=== PATIENT | male | born 1935 | race Caucasian/White ===

== ENCOUNTER 2019-03-13 09:50 | Inpatient (IN) ==
--- NOTE | 2019-03-13 09:46 | Emergency Department Note ---
Entered by Prerna Michele acting as a scribe for Hitesh He MD ED Provider Note Name: Cristian Ahumada Age: 83M Arrives Via: EMS Informant: Patient, Family, EMS CC: Stroke-like symptoms HPI: The patient is a 83 year old male with a history of a mitral valve replacement, recurrent UTIs, and an enlarged prostate that is presenting to the Emergency Room with complaints of stroke-like symptoms that started this morning around 0730. The patient arrived via EMS who provided part of the history as giv en by the patient's family. EMS states that the patient was experiencing an episode of mild confusion and vomited multiple times upon waking. EMS notes that the patient's family was not able to state an exact time for an onset of the patient's current symptoms. EMS reports that the patient was having difficulty speaking. EMS notes that the patient is able to state his name but is having difficulty finding words. EMS states that the patient is complaining of a mild headache. The patient states that he was nauseous upon arrival to the Emergency Room but notes that it resolved with treatment. He state that he has taken all of his medications this morning. He denies any recent antibiotics or illness. He denies any other symptoms beyond a difficulty finding words. ROS: See above HPI for pertinent positives & negatives. A total of 10 systems reviewed and were otherwise negative. Past Medical History: Recurrent urinary tract infections, enlarged prostate Past Surgical History: S/p mitral valve replacement Family History: Non-contributory family history Social History: , lives with spouse, retired Home Medications: Coumadin Allergies NKDA Physical: Vitals: BP: 147/84; P: 71; R: 17; R: 98.2F, O2 98% Exam: GENERAL: Patient is well appearing and in no acute distress. EYES: No scleral icterus, unremarkable pupils. ENT: Mucous membranes moist, no nasal congestion. NECK: No masses appreciated, no meningismus, trachea is midline. RESPIRATORY: No dyspnea. Clear to auscultation and equal bilaterally. No rhonchi. Mild wheezing noted. CARDIOVASCULAR: Regular rate and rhythm. No murmurs, rubs, gallops appreciated. Anterior lateral right chest incision scar. GASTROINTESTINAL: Abdomen soft, non-tender, no peritonitis. Bowel sounds positive. No masses appreciated. BACK: No midline tenderness, no CVA tenderness EXTREMITIES: Normal motion all extremities, no cyanosis, no edema. NEUROLOGIC: Alert and oriented, no acute sensory deficits, cranial nerves grossly intact. Mild right hand weakness but proximal muscles are 5/5. All other extremities are normal. Some difficulty with word finding but no slurred speech. Hard of hearing. SKIN: No rash, no jaundice, no diaphoresis. GCS 15 ED Course: Prior Medical Record, Triage/Nursing Notes, Medications, Allergies reviewed by Me Vital Signs: reviewed and remarkable for mild HTN Labs: Reviewed and remarkable for INR 2.5 Interventions: Saline Lock, NSS infusion, Magnesium 2G IV Imaging: CT SCAN OF THE BRAIN WITHOUT IV CONTRAST CLINICAL HISTORY: Strokelike symptoms. COMPARISON STUDY: No priors. TECHNIQUE: Unenhanced axial CT scan of the brain is performed from the vertex to the skull base. A dose lowering technique was utilized adhering to the principles of ALARA. CT DOSE: 614.27 mGy.cm FINDINGS: Brain parenchyma: There are age-related involutional changes noting moderate to advanced subcortical and periventricular microangiopathic change. A small focus of left frontal encephalomalacia is consistent with a remote infarct. There is no hemorrhage, mass effect, or evidence of acute territorial ischemia by CT criteria. Pulido-white matter differentiation is preserved. No extra-axial fluid collection is seen. Ventricles, sulci, cisterns: Prominent secondary to involutional change. Intracranial vasculature: There is atherosclerotic calcification of the cavernous carotid and vertebral arteries. Calvarium: Unremarkable. Soft tissues: A tiny metallic foreign body is seen within the frontal scalp. Sinuses and mastoids: Trace mucosal thickening is seen in the right maxillary antra. The remaining visualized paranasal sinuses are clear. The mastoid air cells are well pneumatized. Orbits: The bony orbits are grossly intact. There are bilateral ocular lens implants. IMPRESSION: There is no hemorrhage, mass effect, or evidence of acute territorial ischemia by CT criteria. Electronically signed by: Benny Bates M.D. 03/13/2019 10:01 AM XR chest 1V portable CLINICAL HISTORY: stroke symptoms, vomiting, confusion mental status change COMPARISON STUDY: No previous studies for comparison. FINDINGS: The bones soft tissues and hemidiaphragms are normal. The cardiomediastinal silhouette is normal. The lungs are clear. The pulmonary vasculature is normal. IMPRESSION: Negative chest. The above report was generated using voice recognition software. It may contain grammatical, syntax or spelling errors. Electronically signed by: Ted Raman M.D. 03/13/2019 10:[address] angio head w con HISTORY: Mental status change stroke eval TECHNIQUE: Multiaxial CT angiography of the head was performed IV contrast: None. Maximum intensity projection images were also obtained. A dose lowering technique was utilized adhering to the principles of ALARA. COMPARISON: None. FINDINGS: There is no mass, hematoma, midline shift, or acute infarct. Visual ized intracranial internal carotid arteries, distal vertebral arteries, and basilar artery are widely patent. There is no significant stenosis, occlusion, or aneurysm seen within the bilateral ACAs, MCAs, or bariatric surgeon. IMPRESSION: No significant stenosis, occlusion, or aneurysm within the [place]. The above report was generated using voice recognition software. It may contain grammatical, syntax or spelling errors. Electronically signed by: Ted Raman M.D. 03/13/2019 11:[address] angio neck with con CLINICAL HISTORY: 83 years-old Male with stroke eval. Acute strokelike symptoms COMPARISON STUDY: CTA of the head of same day TECHNIQUE: Following the IV administration of 94 mL of Optiray 320, CT angiogram of the neck was performed from the aortic arch to the skull base. Images are reviewed in the axial, sagittal, and coronal planes. 3-D MIPS images are created and assessed. IV contrast was administered without complication. All measuremen ts were calculated based on NASCET criteria. A dose lowering technique was utilized adhering to the principles of ALARA. FINDINGS: Mild mixed plaque formation about the thoracic aorta and proximal great vessels. The bilateral subclavian arteries appear to be widely patent. Patent bilateral common carotid arteries. Moderate mixed plaque information about the bilateral carotid bulbs results in less than 50% luminal narrowing bilaterally. There is calcified plaque noted about the bilateral cavernous and supraclinoid segments without high-grade stenosis. Vertebral arteries appear to be codominant. Areas of mild luminal narrowing noted about the bilateral V2 segments without high- grade stenosis. Lung apices appear clear. Soft tissues are unremarkable. Prior bilateral cataract repair. Degenerative changes noted throughout the spine. Mastoid air cells and middle ear cavities are clear. Mild mucosal thickening about the ethmoid and maxillary sinuses. IMPRESSION: 1. No aneurysm, dissection, high-grade stenosis or proximal branch occlusion. 2. Moderate mixed plaque information about the bilateral carotid bulbs results in less than 50% stenosis. The above report was generated using voice recognition software. It may contain grammatical, syntax or spelling errors. Electronically signed by: Juanjose Bose M.D. 03/13/2019 11:53 AM EKG: Per My Interpretation: Indication Stroke: NSR 76 bpm qtc 456 no ectopy no ischemia. Similar to previous EKG Course: 954: The patient arrived and went immediately to CT. A complete history and physical examination was performed. 0959: I discussed the patients case with Dr. Wayne ,Stroke Neurologist, who will evaluate the patient via telestroke. 1003: INR is 2.6. 1005: Patient is no distress. Right hand weakness that was noted earlier does not appear to present currently. 1019 Family at bedside. They confirmed that the right sided weakness is chronic. They state that the patient was normal last night and started having difficulty speaking this morning upon waking 1037: I spoke with neurology who recommended a CTA head and neck, an EEG, 2 g IV magnesium, and to allow for moderate hypertension. 1046: I reevaluated the patient at this time, who is resting comfortable and in no distress. 1051: I discussed the patients case with AYDEE Correa, who will evaluate the patient further management and care with Dr. Draper as the attending physician. 1055: Upon reevaluation, the patient is resting comfortably. I discussed laboratory and radiographic results with the patient. He verbalized agreement of the treatment plan. The patient will be evaluated for further management and care. Blood pressure: Elevated - [place] to be Situation. Disposition: Hospitalization Differentials: Differential: Toxicological, Infectious, Stroke, SAH, Trauma, Electrolyte Abnormality, Hypoglycemia, Alcohol Intoxication, Drug Intoxication, Cardiac Abnormality, Sepsis, Meningitis/Encephalitis, Trauma, Excited Delirium, Serotonin Syndrome, Psychiatric, amongst other pathologies entertained. Medical Decision Makin yr old male with history of DMII, CKD, PAF and previous MV repair on coumadin who arrives with acute AMS and aphasia. Stroke alert initiated and patient taken directly to CT. On exam aphasia and mild right sided weakness. Family eventually arrived and note that right side weakness chronic but speech issues are new. Patient with head bleed. Neurologist evaluated patient and agreed not TPA candidate given his coumadin use and INR 2.5. He was monitored closed with stable symptoms. CTA done without acute findings. CXR unremarkable. Neurologist recommendations noted. Patient admitted to hospitalist for further management and evaluation. Impression: Aphasia, stroke, therapeutic INR Critical Care Time: I have personally spent greater than 30 minutes of critical care time in the direct management of this patient. Patient with acute findings of stroke for which stroke team activated, TPA at bedside with Pharmacist though was not mixed/given due to contraindications. This was a life/limb threatening event. This includes time spent evaluating patient, direct bedside care, chart review, placing orders, interpretation of diagnostic studies, discussion with consultants, patient, and family members, as well as other required patient management activities. This 30 minutes is in excess of all separately billable procedures. The scribe's documentation has been prepared under my direction and personally reviewed by me in its entirety. I confirm that the note above accurately reflects all work, treatment, procedures, and medical decision making performed by me. 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) CKD (chronic kidney disease), stage III (Chronic) DM type 2 (diabetes mellitus, type 2) (Chronic) Surgical History History of mitral valve replacement with bioprosthetic valve (Chronic) Due to infective endocarditis H/O right knee surgery (Chronic) Family History Father Heart disease Mother Stroke Social History Preferred Language: Beninese Communication Ability: Effective Beliefs That Will Affect Care: None marital status: Current Living Situation: Spouse Current Living Situation Comment: lives with dtr and current occupational status: retired Other Information That Helps Us Care for You: No Feels Safe at Home: Yes Safety Concerns: Feels Safe At This Time Smoking Status: Never smoker Hx Alcohol Use: No Hx Substance Use: No Results & Data Vital Signs Vital Signs - 24 hr 03/13/19 09:59 03/13/19 10:00 03/13/19 10:01 Temperature 36.8 C Temperature Source Oral Sepsis Recent Fever Within 48 Hours No Sepsis New/Unexplained Change in Mental Status No Sepsis Action Taken by Nursing No Action Required Pulse Rate 74 75 75 Pulse Rate from SpO2 Sensor 76 75 Respiratory Rate 16 13 Respiratory Effort / Characteristics Non-Labored Respiratory Depth Normal Respiratory Pattern Regular Blood Pressure 166/98 H 166/98 H Blood Pressure Mean 120 120 Blood Pressure Position Sitting Pulse Oximetry 98 96 96 Oxygen Delivery Method Room Air 03/13/19 10:10 03/13/19 10:11 03/13/19 10:15 Temperature Temperature Source Sepsis Recent Fever Within 48 Hours Sepsis New/Unexplained Change in Mental Status Sepsis Action Taken by Nursing Pulse Rate 80 79 80 Pulse Rate from SpO2 Sensor 79 80 81 Respiratory Rate 15 Respiratory Effort / Characteristics Respiratory Depth Respiratory Pattern Blood Pressure 134/84 140/100 Blood Pressure Mean 100 113 Blood Pressure Position Pulse Oximetry 98 97 97 Oxygen Delivery Method 03/13/19 10:20 03/13/19 10:26 03/13/19 10:30 Temperature Temperature Source Sepsis Recent Fever Within 48 Hours Sepsis New/Unexplained Change in Mental Status Sepsis Action Taken by Nursing Pulse Rate 77 77 74 Pulse Rate from SpO2 Sensor 77 77 75 Respiratory Rate 12 12 17 Respiratory Effort / Characteristics Respiratory Depth Respiratory Pattern Blood Pressure 147/78 H 148/73 H Blood Pressure Mean 101 98 Blood Pressure Position Pulse Oximetry 98 98 98 Oxygen Delivery Method 03/13/19 10:31 03/13/19 10:40 03/13/19 10:45 Temperature Temperature Source Sepsis Recent Fever Within 48 Hours Sepsis New/Unexplained Change in Mental Status Sepsis Action Taken by Nursing Pulse Rate 75 79 71 Pulse Rate from SpO2 Sensor 75 80 70 Respiratory Rate 17 14 17 Respiratory Effort / Characteristics Respiratory Depth Respiratory Pattern Blood Pressure 147/84 H Blood Pressure Mean 105 Blood Pressure Position Pulse Oximetry 97 98 97 Oxygen Delivery Method 03/13/19 10:46 03/13/19 10:50 03/13/19 10:57 Temperature Temperature Source Sepsis Recent Fever Within 48 Hours Sepsis New/Unexplained Change in Mental Status Sepsis Action Taken by Nursing Pulse Rate 72 71 74 Pulse Rate from SpO2 Sensor 72 71 73 Respiratory Rate 14 15 29 H Respiratory Effort / Characteristics Respiratory Depth Respiratory Pattern Blood Pressure 133/75 133/75 Blood Pressure Mean 94 94 Blood Pressure Position Pulse Oximetry 97 98 100 Oxygen Delivery Method 03/13/19 11:00 03/13/19 11:08 03/13/19 11:27 Temperature Temperature Source Sepsis Recent Fever Within 48 Hours Sepsis New/Unexplained Change in Mental Status Sepsis Action Taken by Nursing Pulse Rate 69 67 Pulse Rate from SpO2 Sensor 69 Respiratory Rate 16 Respiratory Effort / Characteristics Respiratory Depth Respiratory Pattern Regular Blood Pressure Blood Pressure Mean Blood Pressure Position Pulse Oximetry 100 Oxygen Delivery Method Room Air Laboratory Data Result diagrams: 03/13/19 10:04 03/13/19 10:04 Lab Results 03/13/19 03/13/19 03/13/19 Range/Units 10:02 10:04 10:04 WBC 9.75 (4.8-10.8) K/uL RBC 4.80 (4.7-6.1) M/uL Hgb 15.2 (14.0-18.0) g/dL Hct 43.0 (42-52) % MCV 89.6 (80-100) fL MCH 31.7 (25-34) pg MCHC 35.3 (32-36) g/dL RDW Std Deviation 42.4 (36.4-46.3) fL RDW Coeff of Nicky 13.0 (11.5-14.5) % Plt Count 145 (130-400) K/uL MPV 9.9 (7.4-10.4) fL Immature Gran % (Auto) 0.2 % Neut % (Auto) 72.7 % Lymph % (Auto) 14.9 % Weld % (Auto) 10.1 % Eos % (Auto) 1.8 % Baso % (Auto) 0.3 % Immature Gran # (Auto) 0.02 (0.00-0.02) K/uL Neut # (Auto) 7.09 H (1.4-6.5) K/uL Lymph # (Auto) 1.45 (1.2-3.4) K/uL Weld # (Auto) 0.98 H (0.11-0.59) K/uL Eos # (Auto) 0.18 (0-0.5) K/uL Baso # (Auto) 0.03 (0-0.2) K/uL PT 24.2 H (9.0-12.0) Seconds INR 2.5 H (0.9-1.1) APTT 33.6 H (21.0-31.0) Seconds PTT Ratio 1.2 Sodium (136-145) mmol/L Potassium (3.5-5.1) mmol/L Chloride (98-107) mmol/L Carbon Dioxide (21-32) mmol/L Anion Gap (3-11) BUN (7-18) mg/dl Creatinine (0.6-1.4) mg/dl Est Cr Clr Drug Dosing ml/min Est GFR ( Amer) Est GFR (Non-Af Amer) BUN/Creatinine Ratio (10-20) Glucose (70-99) mg/dl POC Glucose 147 H (70-99) Calcium (8.5-10.1) mg/dl Magnesium (1.8-2.4) mg/dl Total Bilirubin (0.2-1) mg/dl AST (15-37) U/L ALT (12-78) U/L Alkaline Phosphatase (45-117) U/L Troponin I (0-0.045) ng/ml Total Protein (6.4-8.2) gm/dl Albumin (3.4-5.0) gm/dl Globulin (2.5-4.0) gm/dl Albumin/Globulin Ratio (0.9-2) Specimen Hemolysis Urine Color Urine Appearance (Clear) Urine pH (4.5-7.5) Ur Specific [place] (1.000-1.030) Urine Protein (Negative) Urine Glucose (UA) (Negative) Urine Ketones (Negative) Urine Blood (Negative) Urine Nitrite (Negative) Urine Bilirubin (Negative) Urine Urobilinogen (Negative) Ur Leukocyte Esterase (Negative) Blood Type Antibody Screen 03/13/19 03/13/19 03/13/19 Range/Units 10:04 10:18 10:50 WBC (4.8-10.8) K/uL RBC (4.7-6.1) M/uL Hgb (14.0-18.0) g/dL Hct (42-52) % MCV (80-100) fL MCH (25-34) pg MCHC (32-36) g/dL RDW Std Deviation (36.4-46.3) fL RDW Coeff of Nicky (11.5-14.5) % Plt Count (130-400) K/uL MPV (7.4-10.4) fL Immature Gran % (Auto) % Neut % (Auto) % Lymph % (Auto) % [place] % (Auto) % Eos % (Auto) % Baso % (Auto) % Immature Gran # (Auto) (0.00-0.02) K/uL Neut # (Auto) (1.4-6.5) K/uL Lymph # (Auto) (1.2-3.4) K/uL Weld # (Auto) (0.11-0.59) K/uL Eos # (Auto) (0-0.5) K/uL Baso # (Auto) (0-0.2) K/uL PT (9.0-12.0) Seconds INR (0.9-1.1) APTT (21.0-31.0) Seconds PTT Ratio Sodium 139 (136-145) mmol/L Potassium 4.2 (3.5-5.1) mmol/L Chloride 104 (98-107) mmol/L Carbon Dioxide 27 (21-32) mmol/L Anion Gap 8.0 (3-11) BUN 21 H (7-18) mg/dl Creatinine 1.29 (0.6-1.4) mg/dl Est Cr Clr Drug Dosing 38.5 ml/min Est GFR ( Amer) 58.6 Est GFR (Non-Af Amer) 50.6 BUN/Creatinine Ratio 16.4 (10-20) Glucose 154 H (70-99) mg/dl POC Glucose (70-99) Calcium 9.2 (8.5-10.1) mg/dl Magnesium 2.1 (1.8-2.4) mg/dl Total Bilirubin 0.4 (0.2-1) mg/dl AST 22 (15-37) U/L ALT 27 (12-78) U/L Alkaline Phosphatase 66 (45-117) U/L Troponin I < 0.015 (0-0.045) ng/ml Total Protein 7.5 (6.4-8.2) gm/dl Albumin 3.1 L (3.4-5.0) gm/dl Globulin 4.4 H (2.5-4.0) gm/dl Albumin/Globulin Ratio 0.7 L (0.9-2) Specimen Hemolysis Urine Color Yellow Urine Appearance Clear (Clear) Urine pH 8.0 H (4.5-7.5) Ur Specific [place] 1.016 (1.000-1.030) Urine Protein Negative (Negative) Urine Glucose (UA) Negative (Negative) Urine Ketones Negative (Negative) Urine Blood Negative (Negative) Urine Nitrite Negative (Negative) Urine Bilirubin Negative (Negative) Urine Urobilinogen Negative (Negative) Ur Leukocyte Esterase Negative (Negative) Blood Type A Positive Antibody Screen NEGATIVE Administered Medications Discontinued Medications Magnesium Sulfate/Dextrose (Magnesium Sulfate / D5w) 1 gm in 100 mls @ 100 mls/hr IV Q1H LM Stop: 03/13/19 12:44 Last Infusion: 03/13/19 13:30 Dose: 0 mls/hr Documented by: [id number] Admin: 03/13/19 12:24 Dose: 100 mls/hr Documented by: [id number] Infusion: 03/13/19 12:03 Dose: 100 mls/hr Documented by: [id number] Admin: 03/13/19 11:03 Dose: 100 mls/hr Documented by: [id number] Ioversol (Optiray 320 125ml) 94 ml IV ONCE PRN PRN Reason: Interaction Checking Stop: 03/17/19 11:20 Last Admin: 03/13/19 11:21 Dose: 94 ml Documented by: [id number] Discharge Plan Visit Data *Final* Discharge Date/Time: 03/13/19 14:27 Chief Complaint: Stroke Alert ED Provider: Hitesh He Discharge Problem: Aphasia, Stroke Patient Disposition: Admitted As Inpatient Discharge Instructions Interventions: ED Discharge Assessment Last Done: 03/13/19 14:27 The scribe's documentation has been prepared under my direction and personally reviewed by me in its entirety. I confirm that the note above accurately reflects all work, treatment, procedures, and medical decision making performed by me.
--- NOTE | 2019-03-13 10:02 | CT Scan Report ---
CT SCAN OF THE BRAIN WITHOUT IV CONTRAST CLINICAL HISTORY: Strokelike symptoms. COMPARISON STUDY: No priors. TECHNIQUE: Unenhanced axial CT scan of the brain is performed from the vertex to the skull base. A do se lowering technique was utilized adhering to the principles of ALARA. CT DOSE: 614.27 mGy.cm FINDINGS: Brain parenchyma: There are age-related involutional changes noting moderate to advanced subcortical and periventricular microangiopathic change. A small focus of left frontal encephalomalacia is consi stent with a remote infarct. There is no hemorrhage, mass effect, or evidence of acute territorial is chemia by CT criteria. Pulido-white matter differentiation is preserved. No extra-axial fluid collectio n is seen. Ventricles, sulci, cisterns: Prominent secondary to involutional change. Intracranial vasculature: There is atherosclerotic calcification of the cavernous carotid and vertebr al arteries. Calvarium: Unremarkable. Soft tissues: A tiny metallic foreign body is seen within the frontal scalp. Sinuses and mastoids: Trace mucosal thickening is seen in the right maxillary antra. The remaining vi sualized paranasal sinuses are clear. The mastoid air cells are well pneumatized. Orbits: The bony orbits are grossly intact. There are bilateral ocular lens implants. IMPRESSION: There is no hemorrhage, mass effect, or evidence of acute territorial ischemia by CT vladimir melvin. Electronically signed by: Benny Bates M.D. 03/13/2019 10:01 AM
[2019-03-13 10:28] LABS: Basophils # (auto) 0.03 K/uL (0-0.2); Basophils % (auto) 0.3 %; Eosinophils # (auto) 0.18 K/uL (0-0.5); Eosinophils % (auto) 1.8 %; Hemoglobin 15.2 g/dL (14.0-18.0); Immature Granulocytes # (auto) 0.02 K/uL (0.00-0.02); Immature Granulocytes % (auto) 0.2 %; Lymphocytes # (auto) 1.45 K/uL (1.2-3.4); Lymphocytes % (auto) 14.9 %; Mean Corpuscular Hgb Conc 35.3 g/dL (32-36); Mean Corpuscular Volume 89.6 fL (80-100); Mean Platelet Volume 9.9 fL (7.4-10.4); Monocytes # (auto) 0.98 K/uL (0.11-0.59); Monocytes % (auto) 10.1 %; Neutrophils # (auto) 7.09 K/uL (1.4-6.5); Neutrophils % (auto) 72.7 %; Platelet Count 145 K/uL (130-400); RDW Standard Deviation 42.4 fL (36.4-46.3); White Blood Count 9.75 K/uL (4.8-10.8)
[2019-03-13 10:41] LABS: INR 2.5 (0.9-1.1); Partial Thromboplastin Ratio 1.2; Partial Thromboplastin Time 33.6 Seconds (21.0-31.0); Prothrombin Time 24.2 Seconds (9.0-12.0)
[2019-03-13 10:49] LABS: Alanine Aminotransferase 27 U/L (12-78); Albumin Globulin Ratio 0.7 (0.9-2); Albumin Level 3.1 gm/dl (3.4-5.0); Alkaline Phosphatase 66 U/L (45-117); Aspartate Aminotransferase 22 U/L (15-37); BUN Creatinine Ratio 16.4 (10-20); Bilirubin,Total 0.4 mg/dl (0.2-1); Blood Urea Nitrogen 21 mg/dl (7-18); Calcium 9.2 mg/dl (8.5-10.1); Carbon Dioxide 27 mmol/L (21-32); Chloride 104 mmol/L (98-107); Creatinine Clr Calc Pharmacy 38.5 ml/min; Est GFR (African American) 58.6; Est GFR (Non-African American) 50.6; Globulin 4.4 gm/dl (2.5-4.0); Glucose 154 mg/dl (70-99); Magnesium 2.1 mg/dl (1.8-2.4); Potassium 4.2 mmol/L (3.5-5.1); Sodium 139 mmol/L (136-145); Total Protein 7.5 gm/dl (6.4-8.2); Troponin I < 0.015 ng/ml (0-0.045)
--- NOTE | 2019-03-13 10:49 | XRay Report ---
XR chest 1V portable CLINICAL HISTORY: stroke symptoms, vomiting, confusion mental status change COMPARISON STUDY: No previous studies for comparison. FINDINGS: The bones soft tissues and hemidiaphragms are normal. The cardiomediastinal silhouette is n ormal. The lungs are clear. The pulmonary vasculature is normal. IMPRESSION: Negative chest. The above report was generated using voice recognition software. It may contain grammatical, syntax or spelling errors. Electronically signed by: Ted Raman M.D. 03/13/2019 10:48 AM
[2019-03-13 11:00] LABS: Appearance Urine Clear (Clear); Bilirubin Urine Negative (Negative); Blood Urine Negative (Negative); Color Urine Yellow; Glucose Urine UA Negative (Negative); Ketones Urine Negative (Negative); Leukocyte Esterase Urine Negative (Negative); Nitrite Urine Negative (Negative); Protein Urine Negative (Negative); Specific Gravity Urine 1.016 (1.000-1.030); Urobilinogen Urine Negative (Negative)
[2019-03-13] MEDS: MAGNESIUM SULFATE / D5W 1 GM/100 ML BAG IV SCH ×2 (11:03→12:24)
[2019-03-13] MEDS ORDERED: OPTIRAY 320 125ml IV PRN (11:21)
--- NOTE | 2019-03-13 11:34 | CT Scan Report ---
CT angio head w con HISTORY: Mental status change stroke eval TECHNIQUE: Multiaxial CT angiography of the head was performed IV contrast: None. Maximum intensit y projection images were also obtained. A dose lowering technique was utilized adhering to the [place]. COMPARISON: None. FINDINGS: There is no mass, hematoma, midline shift, or acute infarct. Visualized intracranial leadership program intern al carotid arteries, distal vertebral arteries, and basilar artery are widely patent. There is no sig nificant stenosis, occlusion, or aneurysm seen within the bilateral ACAs, MCAs, or corporate pilot. IMPRESSION: No significant stenosis, occlusion, or aneurysm within the [place]. The above report was generated using voice recognition software. It may contain grammatical, syntax or spelling errors. Electronically signed by: Ted Raman M.D. 03/13/2019 11:33 AM
--- NOTE | 2019-03-13 11:55 | CT Scan Report ---
CT angio neck with con CLINICAL HISTORY: 83 years-old Male with stroke eval. Acute strokelike symptoms COMPARISON STUDY: CTA of the head of same day TECHNIQUE: Following the IV administration of 94 mL of Optiray 320, CT angiogram of the neck was perf ormed from the aortic arch to the skull base. Images are reviewed in the axial, sagittal, and coronal planes. 3-D MIPS images are created and assessed. IV contrast was administered without complication. All measurements were calculated based on NASCET criteria. A dose lowering technique was utilized a dhering to the principles of ALARA. FINDINGS: Mild mixed plaque formation about the thoracic aorta and proximal great vessels. The bilateral subcla vian arteries appear to be widely patent. Patent bilateral common carotid arteries. Moderate mixed pl aque information about the bilateral carotid bulbs results in less than 50% luminal narrowing bilater ally. There is calcified plaque noted about the bilateral cavernous and supraclinoid segments without high-grade stenosis. Vertebral arteries appear to be codominant. Areas of mild luminal narrowing not ed about the bilateral V2 segments without high-grade stenosis. Lung apices appear clear. Soft tissues are unremarkable. Prior bilateral cataract repair. Degenerativ e changes noted throughout the spine. Mastoid air cells and middle ear cavities are clear. Mild mucos al thickening about the ethmoid and maxillary sinuses. IMPRESSION: 1. No aneurysm, dissection, high-grade stenosis or proximal branch occlusion. 2. Moderate mixed plaque information about the bilateral carotid bulbs results in less than 50% steno sis. The above report was generated using voice recognition software. It may contain grammatical, syntax o r spelling errors. Electronically signed by: Juanjose Bose M.D. 03/13/2019 11:53 AM
--- NOTE | 2019-03-13 12:24 | History & Physical Report ---
Date of Service March 13, 2019 Assessment & Plan (1) Aphasia: -Admit to telemetry -Patient presenting from home after having aphasia once waking up this morning, last well-known was around 10 PM last night when he went to bed -Symptoms now have mostly resolved -Stroke alert called in the ED however not felt to be a TPA candidate due to being anticoagulated on Coumadin -Head CT, head and neck CTAs unremarkable -Tele-stroke team recommended IV magnesium infusion and check EEG -Brain MRI -Recently had echo on 02/13/2019 -functioning bioprosthetic mitral valve, EF 45 to 49%, grade 1 diastolic dysfunction -Serial neuro checks, allow for permissive hypertension -Neuro consult, input appreciated (2) Paroxysmal atrial fibrillation: -Currently in NSR -Rate controlled on metoprolol, will continue -Anticoagulated on Coumadin, INR 2.5, will continue (3) Chronic systolic heart failure due to valvular disease: -EF 45 to 49% -Appears euvolemic, continue home dose of furosemide (4) CKD (chronic kidney disease), stage III: - baseline creat runs in the low ones - creat noted to be 1.2 today - continue to monitor, avoid nephrotoxic agents when able (5) DM type 2 (diabetes mellitus, type 2): -Diet-controlled -Hgb A1c 6.4 12/2018 -Monitor glucose (6) History of mitral valve replacement with bioprosthetic valve: -No acute issues (7) DVT prophylaxis: -Anticoagulated on Coumadin with therapeutic INR History of Present Illness Chief Complaint: Aphasia Primary Care Provider: Jasmyne Gramajo MD 83-year-old male who presents to the ED with aphasia. Patient's family who is the bedside provides some history. Daughter reports that this morning when her father woke up he was unable to get any words out. She reports that he was comprehending what she was saying however was unable to speak back. Went to bed last evening around 10:00 in his usual state of health. Patient was then transferred to the ED for further evaluation. Daughter notes that over the past few days the patient has been a little slower with ambulation and might have been dragging his right leg a little bit. Patient does have history of a prior hip fracture status post repair so patient does have trouble with this leg from time to time. Also history of right rotator cuff tear and surgery of his right hand therefore right arm and hand are weak at baseline. Otherwise, patient has been doing well recently. No reported chest pain, palpitations, shortness of breath. Patient denies lightheadedness, dizziness, diaphoresis, syncopal events. Denies abdominal pain, nausea, vomiting, diarrhea. No urinary symptoms. Denies fevers and chills. In the ED, a stroke alert was called however patient was not felt to be a TPA candidate secondary to being anticoagulated on Coumadin. Head CT was negative. Tele-stroke team recommended IV magnesium, head and neck CTA's, and EEG. Allergies Allergy/AdvReac Type Severity Reaction Status Date / Time No Known Allergies Allergy Unverified 03/13/19 12:32 Home Medications Home Medications Medication Instructions Recorded Confirmed Type acetaminophen [Tylenol Arthritis 650 mg PO HS 03/01/19 03/13/19 History Pain] aspirin 81 mg PO PM 03/01/19 03/13/19 History duloxetine [Cymbalta] 30 mg PO QAM 03/01/19 03/13/19 History finasteride 5 mg PO PM 03/01/19 03/13/19 History furosemide [Lasix] 20 mg PO QAM 03/01/19 03/13/19 History metoprolol tartrate 25 mg PO BID 03/01/19 03/13/19 History potassium chloride 5 meq PO QAM 03/13/19 03/13/19 History warfarin [Jantoven] 1.5 mg PO WK 03/13/19 03/13/19 History warfarin [Jantoven] 3 mg PO 6XWK 03/13/19 03/13/19 History Past Med/Surg History Medical History Hip fracture, right (Chronic) S/P repair Right hand fracture (Chronic) S/P repair History of bacterial endocarditis (Chronic) History of stroke (Chronic) 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 Paroxysmal atrial fibrillation (Chronic) Chronic systolic heart failure due to valvular disease (Chronic) CKD (chronic kidney disease), stage III (Chronic) DM type 2 (diabetes mellitus, type 2) (Chronic) Surgical History History of mitral valve replacement with bioprosthetic valve (Chronic) Due to infective endocarditis H/O right knee surgery (Chronic) Family History Father Heart disease Mother Stroke Social History Preferred Language: [place] Citizen Communication Ability: Effective Beliefs That Will Affect Care: None marital status: Current Living Situation: Spouse Current Living Situation Comment: lives with dtr and current occupational status: retired Other Information That Helps Us Care for You: No Feels Safe at Home: Yes Safety Concerns: Feels Safe At This Time Smoking Status: Never smoker Hx Alcohol Use: No Hx Substance Use: No Review of Systems Review of Systems: ROS per HPI, all other systems reviewed and negative Physical Exam Constitutional: WD/WN, vitals as above Eyes: PERRL, conjunctivae normal, anicteric sclerae ENMT: external ear and nose normal, oropharynx normal Respiratory: normal respiratory effort, lungs clear to auscultation Cardiovascular: Rate/Rhythm: regular rate and regular rhythm Vessels: normal peripheral pulses Extremities: no edema Gastrointestinal (Abdomen): normal bowel sounds, soft, nontender, no hepatosplenomegaly Musculoskeletal: Extremities: + abnormal strength (RUE 4/5, LUE 5/5), no cyanosis and no clubbing Skin: no rashes, warm and dry Neurologic: PERRL, EOMI, accommodation nl, no face palsy, no dysarthria moves all extremities and awake; no focal motor deficits Motor/Sensory: no pronator drift Cranial Nerves: tongue midline and able to elevate shoulders bilaterally Coordination: + abnormal khbrbj-[id number] test (Patient was able to complete on the left without difficulty however seem to have difficulty comprehending when completing on the right); normal [id number] test Psychiatric: Orientation: alert, oriented to person and oriented to place; + not oriented to time Insight: + limited insight Results & Data Vital Signs (Past 12 Hours) Vital Signs Temp Pulse Resp BP Pulse Ox 03/13/19 10:50 71 15 133/75 98 03/13/19 10:46 72 14 97 03/13/19 10:45 71 17 147/84 H 97 03/13/19 10:40 79 14 98 03/13/19 10:31 75 17 97 03/13/19 10:30 74 17 148/73 H 98 03/13/19 10:26 77 12 147/78 H 98 03/13/19 10:20 77 12 98 03/13/19 10:15 80 140/100 97 03/13/19 10:11 79 15 97 03/13/19 10:10 80 134/84 98 03/13/19 10:01 75 96 03/13/19 10:00 75 13 166/98 H 96 03/13/19 09:59 36.8 C 74 16 166/98 H 98 Laboratory Results Short CBC 03/13/19 Range/Units 10:04 WBC 9.75 (4.8-10.8) K/uL Hgb 15.2 (14.0-18.0) g/dL Hct 43.0 (42-52) % Plt Count 145 (130-400) K/uL BMP 03/13/19 10:04 Sodium 139 Potassium 4.2 Chloride 104 Carbon Dioxide 27 BUN 21 H Creatinine 1.29 Glucose 154 H Calcium 9.2 Cardiac Enzymes 03/13/19 Range/Units 10:04 Troponin I < 0.015 (0-0.045) ng/ml Liver Function 03/13/19 Range/Units 10:04 Total Bilirubin 0.4 (0.2-1) mg/dl AST 22 (15-37) U/L ALT 27 (12-78) U/L Alkaline Phosphatase 66 (45-117) U/L Albumin 3.1 L (3.4-5.0) gm/dl Urine 03/13/19 Range/Units 10:50 Urine Color Yellow Urine Appearance Clear (Clear) Urine pH 8.0 H (4.5-7.5) Ur Specific [place] 1.016 (1.000-1.030) Urine Protein Negative (Negative) Urine Glucose (UA) Negative (Negative) Diagnostic Findings HEAD CT IMPRESSION: There is no hemorrhage, mass effect, or evidence of acute territorial ischemia by CT criteria. CXR IMPRESSION: Negative chest. HEAD CTA IMPRESSION: No significant stenosis, occlusion, or aneurysm within the [place]. CTA NECK IMPRESSION: 1. No aneurysm, dissection, high-grade stenosis or proximal branch occlusion. 2. Moderate mixed plaque information about the bilateral carotid bulbs results in less than 50% stenosis. Code Status & VTE Plan Code Status Patient is a full code as per my discussion with patient's daughter who is the bedside. VTE Prophylaxis Plan VTE Prophylaxis will be ordered: Yes Supervising Physician Co-Signing Physician Notes I, Dr. Mick Draper, have seen and assessed the patient with nurse practitioner and agree with the assessment and plan and would like to comment that on exam in the ED, Neuro: the patient's aphasia appears to have been resolved. verbal and speaking fluently in full sentences.when laying flat, motor strength of extremities appears equal and symmetric Heart: regular rate Lungs: Clear to auscultation bilaterally Abdomen: soft, nontender, bowel sounds present As per patient's daughter, the aphasia had been in the morning prior to the ED presentation. Head and Neck CTA studies so far is unremarkable - No significant stenosis, occlusion, or aneurysm within the [place] on Head CTA and There is No aneurysm, dissection, high-grade stenosis or proximal branch occlusion and thereis Moderate mixed plaque information about the bilateral carotid bulbs results in less than 50% stenosis on Neck CTA. Patient is already anticoagulated on coumadin because of bioprosthetic heart valve and home medication list also includes aspirin. As I have discussed with the patient and patient's family members, the absence of CTA findings does not rule out stroke. will follow with Brain MRI. will ask for neurology service recommendations. Patient may benefit from PT/OT evaluations while in the hospital as patient's daughter also concerned for patient's balance and stability when walking even prior to the aphasia episode for which patient presented to the ED for. agree with other assessments of health issues as documented by nurse practitioner My hospitalist colleague Dr. Bernardo will be continuing the patient's medical care starting tomorrow on 03/14/19
[2019-03-13] MEDS ORDERED: ACETAMINOPHEN 325 MG TAB PO PRN (15:00)
[2019-03-13] MEDS ORDERED: PHARMACIST DISCHARGE MED REC CONSULT PRN (15:00)
--- NOTE | 2019-03-13 15:04 | Neurology Consultation ---
Date of Consultation March 13, 2019 Assessment & Plan (1) Aphasia: 1. MRI brain- ordered- [facility] valve- daughter has serial number for device 2. CTA head and neck - no severe stenosis 3. PT/OT speech for discharge needs 4. optimize DM, HTN, HLD, LDL <70 consider patient age 5. INR goal with MVR 2.5-3.5 6. currently on aspirin 81 mg 7. fall risk [facility] DO[facility] Eliquis?? 9. continue coumadin and aspirin 81 mg Supervising Physician Co-Signing Physician Notes I have seen and discussed above patient with Dr Jerad Castaneda. I agree with Marbella Zapata PA-C as noted below. Patient was seen and examined. and daughter at bedside. Daughter reports episode of altered mentation and severe speech difficulty earlier this morning. He has significantly improved although speech is not back to baseline. He is on Coumadin and ASA and has history MV replacement, Afib, CKD, CVA, and DM. Patient evaluated in the ED with CT head and CTA head and neck which showed no evdience of acute hemorrhage or large vessel occlusion or significant stenosis. On examine he has some mild word finding difficulty. Speech is soft. Comprehension is intact. He is grossly hard of hearing. Has masked facies and is bradykinetic. Labs UA was negative. INR 2.5 - Recommend to continue home Coumadin and Aspirin - Recommend MRI brain without contrast History of Present Illness Reason for Consultation: aphasia Requesting Physician: Maria Teresa Graves DO Attending Physician: Maria Teresa Graves DO History of Present Illness Cristian is an 83 year old male with PMH diagnosed with vegatation on mitral valve 01/05/2018, mitral valve replacement 06/2018, [facility] valve and ASD closure. chronic afib, CKD III, DM2 ambulatory dysfunction, previous CVA who presents to the ED with aphasia. Daughter states this am when her father woke up he was unable to get any words out and had some vomiting. She reports that he was comprehending what she was saying however was unable to speak back. Went to bed last evening around 10:00 in his usual state of health. They called EMS and he was transported to the hospital. Daughter notes that over the past few days the patient has been a little slower with ambulation and might have been dragging his right leg a little bit but since his hip fracture he does have trouble with this leg from time to time, had a right rotator cuff tear and surgery of his right hand therefore right arm and hand are weak at baseline. He states he remembers not being able to form his words but he does not remember anything else. Currently he states he is not back to his baseline. denies CP, SOB, abdominal pain, one sided weakness, numbness tingling vision changes, new bowel or bladder issues. Allergies Allergy/AdvReac Type Severity Reaction Status Date / Time No Known Allergies Allergy Unverified 03/13/19 12:32 Home Medications Home Medications Medication Instructions Recorded Confirmed Type acetaminophen [Tylenol Arthritis 650 mg PO HS 03/01/19 03/13/19 History Pain] aspirin 81 mg PO PM 03/01/19 03/13/19 History duloxetine [Cymbalta] 30 mg PO QAM 03/01/19 03/13/19 History finasteride 5 mg PO PM 03/01/19 03/13/19 History furosemide [Lasix] 20 mg PO QAM 03/01/19 03/13/19 History metoprolol tartrate 25 mg PO BID 03/01/19 03/13/19 History potassium chloride 5 meq PO QAM 03/13/19 03/13/19 History warfarin [Jantoven] 1.5 mg PO WK 03/13/19 03/13/19 History warfarin [Jantoven] 3 mg PO 6XWK 03/13/19 03/13/19 History Patient History Medical History Hip fracture, right (Chronic) S/P repair Right hand fracture (Chronic) S/P repair History of bacterial endocarditis (Chronic) History of stroke (Chronic) 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 Paroxysmal atrial fibrillation (Chronic) Chronic systolic heart failure due to valvular disease (Chronic) CKD (chronic kidney disease), stage III (Chronic) DM type 2 (diabetes mellitus, type 2) (Chronic) Surgical History History of mitral valve replacement with bioprosthetic valve (Chronic) Due to infective endocarditis H/O right knee surgery (Chronic) Family History Father Heart disease Mother Stroke Social History Preferred Language: [place] Communication Ability: Effective Beliefs That Will Affect Care: None marital status: Current Living Situation: Spouse Current Living Situation Comment: lives with dtr and current occupational status: retired Other Information That Helps Us Care for You: No Feels Safe at Home: Yes Safety Concerns: Feels Safe At This Time Smoking Status: Never smoker Hx Alcohol Use: No Hx Substance Use: No Physical Exam Physical Exam: Physical Exam: Constitutional: appearance nourished, pale, thin Ears, Nose, Mouth and Throat: mucous membranes moist, no injection and skin normal, eyes normal Cardiovascular: irregular loud opening snap Respiratory: course breath sounds Musculoskeletal: no peripheral edema Skin: no stigmata of neurocutaneous disease noted and normal and intact Eyes: extraocular muscles intact (EOMI) and pupils equal, round and reactive to light (PERRL) NEUROLOGIC EXAMINATION: Mental status: Alert and interactive Oriented able to identify button, pen, able to stick out tongue, close eye point to ceiling with left hand, unable to initiate what he wants to say about his meds Oriented to person Speech dysphasia Cranial Nerves slight irregular smile, tongue mid line Reflexes: Deep tendon reflexes were symmetrical and graded 2/5. Sensory: no deficit to light or cool touch Coordination: finger to nose, no pronator drift, cogwheeling UE bilaterally no resting tremor Gait/Stance: Posture lying in bed. able to walk slowly with a walker somewhat shuffling gait Strength: generalized weakness Results & Data Vital Signs (Past 12 Hours) Vital Signs Temp Pulse Resp BP Pulse Ox 03/13/19 14:27 74 12 131/74 94 03/13/19 12:00 72 17 03/13/19 11:50 68 17 03/13/19 11:40 67 23 155/85 H 98 03/13/19 11:30 69 15 03/13/19 11:27 67 03/13/19 11:00 69 16 100 03/13/19 10:57 74 29 H 133/75 100 03/13/19 10:50 71 15 133/75 98 03/13/19 10:46 72 14 97 03/13/19 10:45 71 17 147/84 H 97 03/13/19 10:40 79 14 98 03/13/19 10:31 75 17 97 03/13/19 10:30 74 17 148/73 H 98 03/13/19 10:26 77 12 147/78 H 98 03/13/19 10:20 77 12 98 03/13/19 10:15 80 140/100 97 03/13/19 10:11 79 15 97 03/13/19 10:10 80 134/84 98 03/13/19 10:01 75 96 03/13/19 10:00 75 13 166/98 H 96 03/13/19 09:59 36.8 C 74 16 166/98 H 98 Laboratory Results Abnormal lab results 03/13/19 03/13/19 03/13/19 Range/Units 10:02 10:04 10:04 Neut # (Auto) 7.09 H (1.4-6.5) K/uL [place] # (Auto) 0.98 H (0.11-0.59) K/uL PT 24.2 H (9.0-12.0) Seconds INR 2.5 H (0.9-1.1) APTT 33.6 H (21.0-31.0) Seconds BUN (7-18) mg/dl Glucose (70-99) mg/dl POC Glucose 147 H (70-99) Albumin (3.4-5.0) gm/dl Globulin (2.5-4.0) gm/dl Albumin/Globulin Ratio (0.9-2) Urine pH (4.5-7.5) 03/13/19 03/13/19 Range/Units 10:04 10:50 Neut # (Auto) (1.4-6.5) K/uL [place] # (Auto) (0.11-0.59) K/uL PT (9.0-12.0) Seconds INR (0.9-1.1) APTT (21.0-31.0) Seconds BUN 21 H (7-18) mg/dl Glucose 154 H (70-99) mg/dl POC Glucose (70-99) Albumin 3.1 L (3.4-5.0) gm/dl Globulin 4.4 H (2.5-4.0) gm/dl Albumin/Globulin Ratio 0.7 L (0.9-2) Urine pH 8.0 H (4.5-7.5) Diagnostic Findings CT head-There is no hemorrhage, mass effect, or evidence of acute territorial ischemia by CT criteria. CXR-the bones soft tissues and hemidiaphragms are normal. The cardiomediastinal silhouette is normal. The lungs are clear. The pulmonary vasculature is normal. CTA head-No significant stenosis, occlusion, or aneurysm within the [place]. CTA neck- No aneurysm, dissection, high-grade stenosis or proximal branch occlusion. Moderate mixed plaque information about the bilateral carotid bulbs results in less than 50% stenosis.
[2019-03-13] MEDS ORDERED: WARFARIN SOD 3 MG TAB PO SCH (16:00)
--- NOTE | 2019-03-13 19:45 | XRay Report ---
ORBIT RADIOGRAPHS 3 VIEWS HISTORY: pre-MRI screening. COMPARISON: None. FINDINGS: There are no radiopaque foreign bodies identified within the orbits. There is a small metal lic foreign body within the skin anterior to the frontal sinus. Bilateral hearing aids are visualized . IMPRESSION: 1. No intraorbital foreign bodies 2. Bilateral hearing aids 3. Small metallic foreign body within the skin anterior to the frontal sinus. This is not a contraind ication for MRI scanning Electronically signed by: Colten Bell M.D. 03/13/2019 7:43 PM
[2019-03-13] MEDS ORDERED: GADOBUTROL 65ML VIAL IV PRN (20:16)
--- NOTE | 2019-03-13 20:35 | Magnetic Resonance Report ---
MRI OF THE BRAIN WITHOUT AND WITH IV CONTRAST CLINICAL HISTORY: aphasia HISTORY OF PRIOR STROKE. CONFUSION. History of prostate carcinoma COMPARISON STUDY: CT scan dated 03/13/2019 TECHNIQUE: MRI of the brain was performed from the vertex to the skull base utilizing various T1 and T2 weighted sequences. Following the IV administration of 6.5 mL of Gadavist contrast, additional enh anced images were obtained. FINDINGS: Sagittal T1, axial diffusion, proton density and T2 weighted axial, coronal FLAIR, and pre and post a xial T1-weighted images were acquired. These were supplemented with post gadolinium coronal T1 weight ed images. No intra or extra-axial mass lesions are visualized. There is a punctate focus of increased signal within the left posterior cerebellar hemisphere on axia l diffusion-weighted images. This is not clearly defined on the ADC map. There are no corresponding T 2 or FLAIR signal abnormalities. Although a tiny infarct cannot be excluded, this is likely artifactu al There is mild ventricular prominence, finding which is felt to be secondary to volume loss Proton density T2-weighted and FLAIR images reveal extensive foci of increased T2 signal within the w miguelina matter, likely on a small vessel basis. There is an old left frontoparietal infarct. There is mo derate atrophy There are no abnormal flow voids. There is no evidence of pathologic enhancement. IMPRESSION: 1. No evidence of intracranial mass 2. Punctate focus of increased signal on diffusion-weighted imaging in the left cerebellar hemisphere . Artifact is favored 3. 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 Moderate atrophy and moderate white matter disease likely on a small vessel ischemic basis Electronically signed by: Colten Bell M.D. 03/13/2019 8:34 PM
[2019-03-13] MEDS: METOPROLOL TARTRATE 25 MG TAB PO SCH (20:53)
[2019-03-13] MEDS: ASPIRIN 81 MG ECTAB PO SCH (20:53)
[2019-03-13] MEDS: FINASTERIDE 5 MG TAB PO SCH (20:53)
[2019-03-14 05:46] LABS: Estimated Average Glucose 169 mg/dl; Hemoglobin A1C 7.5 % (4.5-5.6)
[2019-03-14 06:07] LABS: Basophils # (auto) 0.03 K/uL (0-0.2); Basophils % (auto) 0.4 %; Eosinophils % (auto) 2.6 %; Immature Granulocytes # (auto) 0.02 K/uL (0.00-0.02); Immature Granulocytes % (auto) 0.3 %; Lymphocytes # (auto) 1.93 K/uL (1.2-3.4); Lymphocytes % (auto) 24.7 %; Mean Corpuscular Hgb Conc 34.9 g/dL (32-36); Mean Corpuscular Volume 91.3 fL (80-100); Mean Platelet Volume 9.7 fL (7.4-10.4); Monocytes # (auto) 1.06 K/uL (0.11-0.59); Monocytes % (auto) 13.6 %; Neutrophils # (auto) 4.58 K/uL (1.4-6.5); Neutrophils % (auto) 58.4 %; Platelet Count 141 K/uL (130-400); RDW Coefficient of Variation 13.2 % (11.5-14.5); RDW Standard Deviation 43.6 fL (36.4-46.3); Red Blood Count 4.71 M/uL (4.7-6.1); White Blood Count 7.82 K/uL (4.8-10.8)
[2019-03-14 06:19] LABS: INR 2.3 (0.9-1.1); Prothrombin Time 21.8 Seconds (9.0-12.0)
[2019-03-14 06:25] LABS: BUN Creatinine Ratio 17.4 (10-20); Calcium 9.1 mg/dl (8.5-10.1); Creatinine Clr Calc Pharmacy 41.5 ml/min; Est GFR (African American) 67.4; Est GFR (Non-African American) 58.1; Potassium 3.9 mmol/L (3.5-5.1)
[2019-03-14] MEDS: METOPROLOL TARTRATE 25 MG TAB PO SCH ×2 (08:50→20:24)
[2019-03-14] MEDS: FUROSEMIDE 20 MG TAB PO SCH (08:51)
[2019-03-14] MEDS: POTASSIUM CHLORIDE 10 MEQ TABCR PO SCH (08:51)
[2019-03-14] MEDS: DULOXETINE HCL 30 MG CAP PO SCH (08:51)
--- NOTE | 2019-03-14 14:17 | Neurology Progress Note ---
Date of Service March 14, 2019 Assessment & Plan (1) Aphasia: 1. MRI brain- ordered- [employer] valve- daughter has serial number for device no evidence on new stroke 2. CTA head and neck - no severe stenosis 3. PT/OT speech for discharge needs 4. optimize DM, HTN, HLD, LDL <70 consider patient age 5. INR goal with MVR 2.5-3.5 7. fall risk 9. continue coumadin and aspirin 81 mg Supervising Physician Co-Signing Physician Notes I have seen and discussed above patient with Dr Jerad Castaneda. I agree with Marbella Zapata PA-c as noted below. Patient was seen and examined. Daughter and at bedside. I reviewed his MRI brain with him and his family. 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 Recommend he continue his current ASA and Coumadin for secondary stroke prevention. Recommend PT/OT for rehab needs. Blood pressure goals SBP<140, DBP<90 mm Hg. I did discuss low dose Aricept, however, his most recent QTC was 456 and given his known cardiovascular disease this may not be a good option. Recommend outpatient neurology follow up in 8-weeks. Christiano Foster is an 83 year old male with PMH diagnosed with vegatation on mitral valve 01/05/2018, mitral valve replacement 06/2018, [employer] [place] valve and ASD closure. chronic afib, CKD III, DM2 ambulatory dysfunction, previous CVA who presents to the ED with aphasia. Daughter states this am when her father woke up he was unable to get any words out and had some vomiting. She reports that he was comprehending what she was saying however was unable to speak back. Went to bed last evening around 10:00 in his usual state of health. They called EMS and he was transported to the hospital. Daughter notes that over the past few days the patient has been a little slower with ambulation and might have been dragging his right leg a little bit but since his hip fracture he does have trouble with this leg from time to time, had a right rotator cuff tear and surgery of his right hand therefore right arm and hand are weak at baseline. He states he remembers not being able to form his words but he does not remember anything else. he is still feeling he is not at baseline but he thinks part of the issue is he does not have his own walker. denies CP, SOB, abdominal pain, one sided weakness, numbness tingling vision changes, new bowel or bladder issues. Physical Exam Physical Exam: Gen: alert NAD lungs course breath sounds CV loud opening snap hand turning sander tender biceps triceps hand turning sander tender 4+/5 hip flex 4+/5 sensation intact to light touch Results & Data Vital Signs (Past 12 Hours) Vital Signs Temp Pulse Resp BP Pulse Ox 03/14/19 11:58 96 03/14/19 11:43 37.4 C 71 20 113/73 03/14/19 07:59 36.9 C 72 20 134/78 98 03/14/19 03:24 37.0 C 66 19 130/73 99 Laboratory Results Abnormal lab results 03/13/19 03/13/19 03/13/19 Range/Units 10:02 10:04 16:25 [place] # (Auto) (0.11-0.59) K/uL PT (9.0-12.0) Seconds POC INR 2.6 H (0.9-1.1) INR (0.9-1.1) Chloride (98-107) mmol/L BUN (7-18) mg/dl Glucose (70-99) mg/dl POC Glucose 143 H (70-99) Hemoglobin A1c 7.5 H (4.5-5.6) % Triglycerides (0-150) mg/dl Cholesterol (0-200) mg/dl 03/13/19 03/14/19 03/14/19 Range/Units 20:57 05:43 05:43 [place] # (Auto) 1.06 H (0.11-0.59) K/uL PT 21.8 H (9.0-12.0) Seconds POC INR (0.9-1.1) INR 2.3 H (0.9-1.1) Chloride (98-107) mmol/L BUN (7-18) mg/dl Glucose (70-99) mg/dl POC Glucose 111 H (70-99) Hemoglobin A1c (4.5-5.6) % Triglycerides (0-150) mg/dl Cholesterol (0-200) mg/dl 03/14/19 Range/Units 05:43 [place] # (Auto) (0.11-0.59) K/uL PT (9.0-12.0) Seconds POC INR (0.9-1.1) INR (0.9-1.1) Chloride 108 H (98-107) mmol/L BUN 20 H (7-18) mg/dl Glucose 133 H (70-99) mg/dl POC Glucose (70-99) Hemoglobin A1c (4.5-5.6) % Triglycerides 198 H (0-150) mg/dl Cholesterol 229 H (0-200) mg/dl Diagnostic Findings MRI brain -No evidence of intracranial mass Punctate focus of increased signal on diffusion-weighted imaging in the left cerebellar hemisphere. 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 Moderate atrophy and moderate white matter disease likely on a small vessel ischemic basis
--- NOTE | 2019-03-14 15:40 | Hospitalist Progress Note ---
Date of Service March 14, 2019 Assessment & Plan (1) Aphasia: Patient presented from home after having an episode of expressive aphasia waking up on morning, last well-known was around 10 PM last night when he went to bed. -Symptoms resolved in ED. -Stroke alert called in the ED however not felt to be a TPA candidate due to being anticoagulated on Coumadin -Head CT, head and neck CTAs unremarkable -Brain MRI-no evidence of intracranial mass, punctate focus of increased signal on diffusion-weighted imaging in left cerebellar hemisphere, artifact favored. 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 PT/OT -inpatient rehab versus home health services with PT/OT Patient is a bit hesitant to be discharged today evening. Okay to discharge tomorrow morning. Family by bedsidewould prefer taking him to home with home health services/PT/OT. Subjective Patient does not have any expressive aphasia anymore. Symptoms have resolved. Does have some right-sided shoulder pain which is chronic. No new localized weakness. No headaches, nausea, vomiting, fever, chills. Physical Exam Physical Exam: GENERAL- AAOX3, No acute distress LUNGS- Air entry bilaterally equal. No rales, rhonchi, crackles, wheezes heard. HEART- Regular rate and rhythm. No murmurs ABDOMEN- Soft, non tender, non distended, Bowel sounds heard. EXTREMITIES- Restricted abduction range of motion for right shoulderchronic NEUROMUSCULAR- AAOX3, Cranial nervesintact, power5/5 all extremities. Reduction in range of motionabduction on right shoulder Results & Data Vital Signs (Past 12 Hours) Vital Signs Temp Pulse Resp BP Pulse Ox 03/14/19 11:58 96 03/14/19 11:43 37.4 C 71 20 113/73 03/14/19 07:59 36.9 C 72 20 134/78 98
[2019-03-14] MEDS ORDERED: WARFARIN SOD 0.5 MG TAB PO SCH (16:00)
[2019-03-14] MEDS: FINASTERIDE 5 MG TAB PO SCH (20:23)
[2019-03-14] MEDS: ASPIRIN 81 MG ECTAB PO SCH (20:25)
[2019-03-14] MEDS ORDERED: ATORVASTATIN 40 MG TAB PO SCH (21:00)
[2019-03-15 05:34] LABS: Basophils # (auto) 0.03 K/uL (0-0.2); Basophils % (auto) 0.4 %; Eosinophils # (auto) 0.19 K/uL (0-0.5); Eosinophils % (auto) 2.5 %; Hematocrit (blood only) 41.9 % (42-52); Hemoglobin 14.7 g/dL (14.0-18.0); Immature Granulocytes # (auto) 0.02 K/uL (0.00-0.02); Immature Granulocytes % (auto) 0.3 %; Lymphocytes # (auto) 2.32 K/uL (1.2-3.4); Lymphocytes % (auto) 30.6 %; Mean Corpuscular Hgb Conc 35.1 g/dL (32-36); Mean Corpuscular Volume 91.1 fL (80-100); Mean Platelet Volume 9.6 fL (7.4-10.4); Monocytes # (auto) 1.03 K/uL (0.11-0.59); Monocytes % (auto) 13.6 %; Neutrophils # (auto) 3.99 K/uL (1.4-6.5); Neutrophils % (auto) 52.6 %; Platelet Count 139 K/uL (130-400); RDW Coefficient of Variation 13.3 % (11.5-14.5); RDW Standard Deviation 43.7 fL (36.4-46.3); White Blood Count 7.58 K/uL (4.8-10.8)
[2019-03-15 05:45] LABS: INR 2.5 (0.9-1.1); Prothrombin Time 23.8 Seconds (9.0-12.0)
[2019-03-15 05:58] LABS: BUN Creatinine Ratio 19.6 (10-20); Calcium 9.1 mg/dl (8.5-10.1); Creatinine Clr Calc Pharmacy 39.4 ml/min; Est GFR (African American) 60.3; Potassium 3.9 mmol/L (3.5-5.1)
[2019-03-15] MEDS: POTASSIUM CHLORIDE 10 MEQ TABCR PO SCH (08:19)
[2019-03-15] MEDS: FUROSEMIDE 20 MG TAB PO SCH (08:20)
[2019-03-15] MEDS: METOPROLOL TARTRATE 25 MG TAB PO SCH (08:20)
[2019-03-15] MEDS: DULOXETINE HCL 30 MG CAP PO SCH (08:20)
--- NOTE | 2019-03-15 11:31 | Hospitalist Progress Note ---
Date of Service March 15, 2019 Assessment & Plan (1) TIA (transient ischemic attack): (2) Aphasia: Patient presented from home after having an episode of expressive aphasia waking up on morning, last well-known was around 10 PM last night when he went to bed. -Symptoms resolved in ED. -Stroke alert called in the ED however not felt to be a TPA candidate due to being anticoagulated on Coumadin -Head CT, head and neck CTAs unremarkable -Brain MRI-no evidence of intracranial mass, punctate focus of increased signal on diffusion-weighted imaging in left cerebellar hemisphere, artifact favored. 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 PT/OT -inpatient rehab versus home health services with PT/OT Family by bedsidewould prefer taking him to home with home health services/PT/OT. Okay to discharge home with home health services/PT/OT Subjective Patient does not have any expressive aphasia anymore. Symptoms have resolved. Does have some right-sided shoulder pain which is chronic. No new localized weakness. No headaches, nausea, vomiting, fever, chills. Eager to be discharged home Physical Exam Physical Exam: GENERAL- AAOX3, No acute distress LUNGS- Air entry bilaterally equal. No rales, rhonchi, crackles, wheezes heard. HEART- Regular rate and rhythm. No murmurs ABDOMEN- Soft, non tender, non distended, Bowel sounds heard. EXTREMITIES- Restricted abduction range of motion for right shoulderchronic NEUROMUSCULAR- AAOX3, Cranial nervesintact, power5/5 all extremities. Reduction in range of motionabduction on right shoulder Results & Data Vital Signs (Past 12 Hours) Vital Signs Temp Pulse Pulse Resp BP BP Pulse Ox 03/15/19 10:34 36.9 C 64 17 113/61 97 03/15/19 08:00 69 03/15/19 07:07 36.5 C 82 17 128/71 98 03/15/19 02:57 36.8 C 64 15 110/56 L 97
--- NOTE | 2019-03-15 11:36 | Discharge Summary ---
Date of Service March 15, 2019 Admission HPI Per Admitting Provider 83-year-old male who presents to the ED with aphasia. Patient's family who is the bedside provides some history. Daughter reports that this morning when her father woke up he was unable to get any words out. She reports that he was comprehending what she was saying however was unable to speak back. Went to bed last evening around 10:00 in his usual state of health. Patient was then transferred to the ED for further evaluation. Daughter notes that over the past few days the patient has been a little slower with ambulation and might have been dragging his right leg a little bit. Patient does have history of a prior hip fracture status post repair so patient does have trouble with this leg from time to time. Also history of right rotator cuff tear and surgery of his right hand therefore right arm and hand are weak at baseline. Otherwise, patient has been doing well recently. No reported chest pain, palpitations, shortness of breath. Patient denies lightheadedness, dizziness, diaphoresis, syncopal events. Denies abdominal pain, nausea, vomiting, diarrhea. No urinary symptoms. Denies fevers and chills. In the ED, a stroke alert was called however patient was not felt to be a TPA candidate secondary to being anticoagulated on Coumadin. Head CT was negative. Tele-stroke team recommended IV magnesium, head and neck CTA's, and EEG. Principal Diagnosis 1. TIA Secondary diagnoses on discharge 1. Paroxysmal atrial fibrillation 2. Chronic systolic heart failure due to valvular heart disease 3. CKD stage III 4. Diabetes mellitus type 2 5. History of mitral valve replacement with bioprosthetic valve on anticoagulation 6. Ambulatory dysfunction Discharge Exam GENERAL- AAOX3, No acute distress LUNGS- Air entry bilaterally equal. No rales, rhonchi, crackles, wheezes heard. HEART- Regular rate and rhythm. No murmurs ABDOMEN- Soft, non tender, non distended, Bowel sounds heard. EXTREMITIES- Restricted abduction range of motion for right shoulderchronic NEUROMUSCULAR- AAOX3, Cranial nervesintact, power5/5 all extremities. Reduction in range of motionabduction on right shoulder Discharge Data Allergies Allergy/AdvReac Type Severity Reaction Status Date / Time No Known Allergies Allergy Unverified 03/13/19 12:32 Consultations 03/13/19 10:51 ED Decision to Admit Stat 03/13/19 15:00 Consult Case Management - Discharge Planning Routine Consult Neurology Routine Ordered Studies 03/13/19 09:43 CT head/brain wo con Stat 03/13/19 10:41 CT angio head w con Stat CT angio neck with con Stat 03/13/19 11:54 MR brain wo/w con Routine Hospital Course (1) TIA (transient ischemic attack): (2) Aphasia: Patient presented from home after having an episode of expressive aphasia waking up on morning, last well-known was around 10 PM last night when he went to bed. -Symptoms resolved in ED. -Stroke alert called in the ED however not felt to be a TPA candidate due to being anticoagulated on Coumadin -Head CT, head and neck CTAs unremarkable -Brain MRI-no evidence of intracranial mass, punctate focus of increased signal on diffusion-weighted imaging in left cerebellar hemisphere, artifact favored. 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 PT/OT -inpatient rehab versus home health services with PT/OT Family by bedsidewould prefer taking him to home with home health services/PT/OT. Okay to discharge home with home health services/PT/OT Total Time Total Time Spent Total Time Spent (In Minutes): 40 minutes Discharge Plan Discharge Items Patient Disposition: Home - Home Health Services Reason For Visit: APHASIA Discharge Goals: Decrease discomfort Activity: Resume your previous activity Activity Comment: as tolerated with PT/OT Non-emergency contact: Primary Care Provider Call non-emergency contact if: your symptoms worsen Follow-up/Referrals: Jasmyne Gramajo MD [Primary Care Provider] - 03/21/19 10:45 am Diet: Heart Healthy and Low Sodium (2gm) Addtl Provider Instructions: MEDICATION CHANGES New medicationatorvastatin 40 mg at bedtime Continue with Coumadin today evening as per prior dose. INR today is 2.5 Home health services/PT/OT recommended Prescriptions: New atorvastatin 40 mg Tablet 40 mg PO HS 30 Days Qty: 30 RF: 0 Continued aspirin 81 mg Tablet,Delayed Release (Dr/Ec) 81 mg PO PM RF: 0 acetaminophen [Tylenol Arthritis Pain] 650 mg Tablet Extended Release 650 mg PO HS RF: 0 furosemide [Lasix] 20 mg Tablet 20 mg PO QAM RF: 0 finasteride 5 mg Tablet 5 mg PO PM RF: 0 metoprolol tartrate 25 mg Tablet 25 mg PO BID RF: 0 duloxetine [Cymbalta] 30 mg Capsule,Delayed Release(Dr/Ec) 30 mg PO QAM RF: 0 potassium chloride 10 mEq tablet extended release 5 meq PO QAM RF: 0 warfarin [Jantoven] 3 mg tablet 3 mg PO 6XWK RF: 0 warfarin [Jantoven] 3 mg tablet 1.5 mg PO WK RF: 0 Stand-Alone Forms: Medications to Prevent Stroke, [facility] Admission Data Admit Date/Time: 03/13/19 11:30 Attending Provider: Sheron Bernardo Admit Provider: Mick Draper Primary Care Provider: Jasmyne Gramajo Other Providers: Mick Draper ; Jerad Castaneda ; Maria Teresa Graves Service: Telemetry
--- NOTE | 2019-03-15 13:08 | Pharmacy Report ---
Pharmacist Stroke Counseling - Date of Service March 15, 2019 - Scope: Pharmacy has been consulted to provide medication discharge counseling for this patient admitted with transient ischemic attack as per the Pharmacist Discharge Counseling for Stroke Patients Protocol. - Medications on Discharge: Home Medications Medication Instructions Recorded Confirmed acetaminophen [Tylenol Arthritis 650 mg PO HS 03/01/19 03/13/19 Pain] aspirin 81 mg PO PM 03/01/19 03/13/19 duloxetine [Cymbalta] 30 mg PO QAM 03/01/19 03/13/19 finasteride 5 mg PO PM 03/01/19 03/13/19 furosemide [Lasix] 20 mg PO QAM 03/01/19 03/13/19 metoprolol tartrate 25 mg PO BID 03/01/19 03/13/19 potassium chloride 5 meq PO QAM 03/13/19 03/13/19 warfarin [Jantoven] 1.5 mg PO WK 03/13/19 03/13/19 warfarin [Jantoven] 3 mg PO 6XWK 03/13/19 03/13/19 New Rx's Medication Instructions Recorded atorvastatin 40 mg PO HS 30 Days #30 tab 03/15/19 - Action: The above medications, specifically ones for stroke treatment/prophylaxis, have been reviewed in detail with the patient and patient's and daughter, Maxine prior to discharge. Mr and Mrs Ross live with their daughter Maxine who takes care of his medications. This includes indication, common adverse reactions, drug interactions, and medication administration. Medication counseling has been employed using the teach-back method to ensure understanding. - Outcome: The patient and patient daughter Maxine have demonstrated understanding of the medications. Please note, they are aware that the pharmacist will call them within 72 hours post-discharge to confirm that the appropriate medications are being taken and answer any further medication related questions the patient might have at that time. Contact information Individual to be contacted: Maxine (daughter) Phone number: [phone] Best time to call: anytime Additional comments: Family was very pleasant to speak with and Maxine seems to be taking very good care of her parents at her home. Thank you for allowing pharmacy to be involved in the care of this patient. Please call [phone] or [phone] with any additional questions
[2019-03-15] MEDS ORDERED: STROKE PATIENT DISCHARGE STA (13:16)
--- NOTE | 2019-03-16 12:23 | Pharmacy Report ---
Pharmacist Post D/C Phone Note - Phone Note: Date of phone call: March 16, 2019. The patient's daughter, Maxine unable to be reached for a follow-up phone call within the 72 hour time frame. Left voicemail with phone number if she would like to call us back. Discharge counseling pharmacist contact information has already been provided to the patient should questions arise. Thank you for allowing us to be involved in the care of this patient. - Home Medications: Home Medications Medication Instructions Recorded Confirmed acetaminophen [Tylenol Arthritis 650 mg PO HS 03/01/19 03/13/19 Pain] aspirin 81 mg PO PM 03/01/19 03/13/19 duloxetine [Cymbalta] 30 mg PO QAM 03/01/19 03/13/19 finasteride 5 mg PO PM 03/01/19 03/13/19 furosemide [Lasix] 20 mg PO QAM 03/01/19 03/13/19 metoprolol tartrate 25 mg PO BID 03/01/19 03/13/19 potassium chloride 5 meq PO QAM 03/13/19 03/13/19 warfarin [Jantoven] 1.5 mg PO WK 03/13/19 03/13/19 warfarin [Jantoven] 3 mg PO 6XWK 03/13/19 03/13/19 New Rx's Medication Instructions Recorded atorvastatin 40 mg PO HS 30 Days #30 tab 03/15/19
== END 2019-03-15 13:39 | disposition home health service (06) | DRG 57 ==
LOC: ED 09:50 → SUATTDRO 11:30 → 2E 11:30

== ENCOUNTER 2021-09-16 15:51 | Observation (INO) ==
[2021-09-16] MEDS ORDERED: PIPERACILL/TAZOBAC CONSULT ACTIVE PRN (16:12)
[2021-09-16] MEDS ORDERED: PIPERACILLIN/TAZOBACTAM 4.5 GM/120 ML BAG IV ONE (16:12)
--- NOTE | 2021-09-16 16:21 | Emergency Department Note ---
Impression & Plan SIRS (systemic inflammatory response syndrome), Aspiration into respiratory tract, Acute dyspnea ED Provider Note NAME: TREMAINE CRANE AGE: 86 SEX: M ARRIVES VIA: Ambulance INFORMANT: EMS ED PROVIDER(S): Lavell Coley MD CHIEF COMPLAINT: SOB, fever PLAN: Disposition: admit MEDICAL DECISION MAKING: The patient is a pleasant 86-year-old gentleman with a past medical history of dementia, CVA, aphasia, paroxysmal atrial fibrillation on warfarin, chronic systolic heart failure, CKD, type 2 diabetes, history of bacterial endocarditis who presents to the emergency department for evaluation of cough, congestion over the past several days from a usp facility at [facility]. The patient is a poor historian given his dementia and aphasia. On arrival the patient is acute on chronically ill-appearing with temperature of 37.6 and vital signs otherwise stable. His O2 saturation is 92% on room air. Lungs with rhonchi bilaterally and diminished at the bases. EKG without overt acute ischemia. CXR with question of RUL opacity with ddx nodule vs airspace disease. WBC, H/H, platelets wnl. INR 1.8. Chemistry without acidosis. Electrolytes unremarkable. Lactate wnl. LFTs without significant abnormality. Troponin negative/undetectable. BNP wnl. Procalcitonin undetectable. Covid-19 RNA, NAAT negative. Patient treated empirically with Zosyn on arrival. Upon re-evaluation the patient did feel somewhat improved. However, given the severity of his presentation with suspicion for aspiration, patient and his at bedside agree with plan for admission. Case was discussed with Evelyne Hyatt [facility] KATTY, with Dr. Burr, [facility] hospitalist who will evaluate the patient for admission. Triage Nursing notes reviewed and agree them. Prior medical records reviewed Vital Signs: reviewed and remarkable for fever and tachycardia. Differential diagnosis: Reactive airway disease, pneumonia, pneumothorax, COPD, CHF, infections, cardiac ischemia, pulmonary embolism, musculoskeletal, gastrointestinal, as well as other pathologies. ER treatment provided: See below. Diagnostics interpreted by me: ECG: NSR, 91 bpm, no ectopy, no overt ST elevation or depression. Cardiac Monitoring: An order for continuous cardiac monitoring was placed and d emonstrated NSR, 91 bpm, no ectopy. Laboratory studies: See below Imaging studies: See below Consultation(s): [facility], with Dr. Burr [facility] hospitalist HPI: The patient is a pleasant 86-year-old gentleman with a past medical history of dementia, CVA, aphasia, paroxysmal atrial fibrillation on warfarin, chronic systolic heart failure, CKD, type 2 diabetes, history of bacterial endocarditis who presents to the emergency department for evaluation of cough, congestion over the past several days from a usp facility at [facility]. The patient is a poor historian given his dementia and aphasia. ROS: See above HPI for pertinent positives & negatives. A total of 10 systems reviewed and were otherwise negative. PAST MEDICAL HISTORY:See Below PAST SURGICAL HISTORY:See Below FAMILY HISTORY:See Below SOCIAL HISTORY:See Below HOME MEDICATIONS:See Below ALLERGIES:See Below VITALS:See Below PHYSICAL EXAMINATION: GENERAL: Awake, alert, acute on chronically ill-appearing, in no distress HENT: Normocephalic, atraumatic. Oropharynx with dry mucous membranes and otherwise unremarkable. . EYES: Normal conjunctiva. Sclera non-icteric. NECK: Supple. No nuchal rigidity. FROM. No JVD. RESPIRATORY: Rhonchi bilaterally and diminished at the bases. Mild increase WOB, in no acute distress. CARDIAC: Regular rate, normal rhythm. Extremities warm and well perfused. Pulses equal. ABDOMEN: Soft, non-distended. No tenderness to palpation. No rebound or guarding. No masses. RECTAL: Deferred. MUSCULOSKELETAL: Chest examination reveals no tenderness. The back is symmetrical on inspection without obvious abnormality. There is no CVA tenderness to palpation. No joint edema. LOWER EXTREMITIES: Calves are equal size bilaterally and non-tender. No edema. No discoloration. NEURO: Normal sensorium. No sensory or motor deficits noted. SKIN: No rash or jaundice noted. 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 Paroxysmal atrial fibrillation Right hand fracture S/P repair Surgical History H/O right knee surgery History of mitral valve replacement with bioprosthetic valve Due to infective endocarditis Family History Father Heart disease Mother Stroke Social History Smoking Status: Never smoker Hx Alcohol Use: Yes Hx Substance Use: No Preferred Language: Zimbabwean Communication Ability: Effective Chief Of Staff Doctor Required: No Beliefs That Will Affect Care: None marital status: Current Living Situation: Correction Current Living Situation Comment: [facility] current occupational status: retired Other Information That Helps Us Care for You: No Feels Safe at Home: Yes Safety Concerns: Feels Safe At This Time Assistive Devices: Denture - Upper, Glasses, Hearing Aid - Left, Hearing Aid - Right and Wheelchair Allergies Allergies Allergy/AdvReac Type Severity Reaction Status Date / Time No Known Allergies Allergy Verified 09/16/21 16:29 Home Meds Home Medications Medication Instructions Recorded Confirmed finasteride 5 mg tablet 5 mg PO [facility] 03/01/19 09/16/21 furosemide 20 mg tablet (Lasix) 20 mg PO [facility] 03/01/19 09/16/21 warfarin 3 mg tablet (Jantoven) 3 mg PO [id number] 03/13/19 09/16/21 acetaminophen 325 mg tablet 650 mg PO MDD 3 GRAMS/24 HOURS 09/16/21 09/16/21 (Tylenol) aspirin 81 mg chewable tablet 81 mg PO [facility] 09/16/21 09/16/21 atorvastatin 20 mg tablet 20 mg PO [facility] 09/16/21 09/16/21 baclofen 10 mg tablet 5 mg PO HS 09/16/21 09/16/21 docusate sodium 100 mg capsule 200 mg PO [facility] 09/16/21 09/16/21 esomeprazole magnesium 20 mg 20 mg PO DAILYBB 09/16/21 09/16/21 capsule,delayed release loratadine 10 mg tablet 10 mg PO [facility] 09/16/21 09/16/21 metoprolol succinate 25 mg 37.5 mg PO [facility] 09/16/21 09/16/21 tablet,extended release 24 hr mometasone 50 mcg/actuation nasal 2 spray INTRANASAL [facility] 09/16/21 09/16/21 spray multivitamin-iron 9 mg-folic acid 1 tab PO QAM 09/16/21 09/16/21 400 mcg-calcium and minerals tablet (Therems-M) warfarin 1 mg tablet 1.5 mg PO [id number] 09/16/21 09/16/21 Results & Data (ED) Vital Signs Vital Signs - 24 hr 09/16/21 16:11 09/16/21 17:03 09/16/21 18:00 Temperature 37.6 C H Temperature Source Oral Pulse Rate 91 H 90 Pulse Rhythm Regular Respiratory Rate 13 18 Respiratory Effort / Characteristics Non-Labored Spontaneous Non-Labored Non-Labored Respiratory Depth Normal Normal Blood Pressure 131/77 Blood Pressure [Right Arm] 131/64 Blood Pressure Mean 95 Blood Pressure Mean [Right Arm] 86 Blood Pressure Position [Right Arm] Lying Pulse Oximetry 92 91 90 Oxygen Delivery Method Room Air Room Air Room Air Sepsis Recent Fever Within 48 Hours Yes Sepsis New/Unexplained Change in Mental Status N/A Sepsis Action Taken by Nursing No Action Required Laboratory Data Attestation: I reviewed the patient's lab results. Result diagrams: 09/16/21 16:07 09/16/21 16:07 Lab Results 09/16/21 09/16/21 09/16/21 Range/Units 16:07 16:07 16:07 WBC 9.49 (4.8-10.8) K/uL RBC 4.71 (4.7-6.1) M/uL Hgb 15.0 (14.0-18.0) g/dL Hct 45.4 (42-52) % MCV 96.4 (80-100) fL MCH 31.8 (25-34) pg MCHC 33.0 (32-36) g/dL RDW Std Deviation 47.0 H (36.4-46.3) fL RDW Coeff of Nicky 13.2 (11.5-14.5) % Plt Count 154 (130-400) K/uL MPV 10.3 (7.4-10.4) fL Immature Gran % (Auto) 0.2 % Neut % (Auto) 62.8 % Lymph % (Auto) 23.1 % Stafford % (Auto) 12.8 % Eos % (Auto) 0.9 % Baso % (Auto) 0.2 % Neut # (Auto) 5.96 (1.4-6.5) K/uL Lymph # (Auto) 2.19 (1.2-3.4) K/uL Stafford # (Auto) 1.21 H (0.11-0.59) K/uL Eos # (Auto) 0.09 (0-0.5) K/uL Baso # (Auto) 0.02 (0-0.2) K/uL Immature Gran # (Auto) 0.02 (0.00-0.02) K/uL PT 17.5 H (9.0-12.0) Seconds INR 1.8 H (0.9-1.1) APTT 40.4 H (21.0-31.0) Seconds PTT Ratio 1.5 Sodium 139 (136-145) mmol/L Potassium 4.0 (3.5-5.1) mmol/L Chloride 104 (98-107) mmol/L Carbon Dioxide 27 (21-32) mmol/L Anion Gap 8 (3-11) BUN 16 (6-23) mg/dl Creatinine 1.17 (0.6-1.4) mg/dl Est Cr Clr Drug Dosing 39.1 ml/min Est GFR ( Amer) 64.6 ml/min Est GFR (Non-Af Amer) 55.7 ml/min BUN/Creatinine Ratio 13.7 (10-20) Glucose 138 H (70-99(Fasting)) mg/dl Lactate (0.4-2.0) mmol/L Calcium 8.9 (8.5-10.1) mg/dl Phosphorus 3.1 (2.5-4.9) mg/dl Magnesium 1.9 (1.7-2.4) mg/dl Total Bilirubin 0.6 (0.2-1.0) mg/dl AST 19 (13-39) U/L ALT 10 (7-52) U/L Alkaline Phosphatase 78 (34-104) U/L Troponin I < 0.03 (0-0.04) ng/ml B-Natriuretic Peptide (0-100) pg/ml Total Protein 7.2 (6.0-8.3) gm/dl Albumin 3.5 (3.4-5.0) gm/dl Globulin 3.7 (2.5-4.0) gm/dl Albumin/Globulin Ratio 0.9 (0.9-2) Procalcitonin (0-0.5) ng/ml SARS-CoV-2, RNA, NAAT (NEGATIVE) 09/16/21 09/16/21 09/16/21 Range/Units 16:07 16:07 16:30 WBC (4.8-10.8) K/uL RBC (4.7-6.1) M/uL Hgb (14.0-18.0) g/dL Hct (42-52) % MCV (80-100) fL MCH (25-34) pg MCHC (32-36) g/dL RDW Std Deviation (36.4-46.3) fL RDW Coeff of Nicky (11.5-14.5) % Plt Count (130-400) K/uL MPV (7.4-10.4) fL Immature Gran % (Auto) % Neut % (Auto) % Lymph % (Auto) % Stafford % (Auto) % Eos % (Auto) % Baso % (Auto) % Neut # (Auto) (1.4-6.5) K/uL Lymph # (Auto) (1.2-3.4) K/uL Stafford # (Auto) (0.11-0.59) K/uL Eos # (Auto) (0-0.5) K/uL Baso # (Auto) (0-0.2) K/uL Immature Gran # (Auto) (0.00-0.02) K/uL PT (9.0-12.0) Seconds INR (0.9-1.1) APTT (21.0-31.0) Seconds PTT Ratio Sodium (136-145) mmol/L Potassium (3.5-5.1) mmol/L Chloride (98-107) mmol/L Carbon Dioxide (21-32) mmol/L Anion Gap (3-11) BUN (6-23) mg/dl Creatinine (0.6-1.4) mg/dl Est Cr Clr Drug Dosing ml/min Est GFR ( Amer) ml/min Est GFR (Non-Af Amer) ml/min BUN/Creatinine Ratio (10-20) Glucose (70-99(Fasting)) mg/dl Lactate 1.4 (0.4-2.0) mmol/L Calcium (8.5-10.1) mg/dl Phosphorus (2.5-4.9) mg/dl Magnesium (1.7-2.4) mg/dl Total Bilirubin (0.2-1.0) mg/dl AST (13-39) U/L ALT (7-52) U/L Alkaline Phosphatase (34-104) U/L Troponin I (0-0.04) ng/ml B-Natriuretic Peptide 84 (0-100) pg/ml Total Protein (6.0-8.3) gm/dl Albumin (3.4-5.0) gm/dl Globulin (2.5-4.0) gm/dl Albumin/Globulin Ratio (0.9-2) Procalcitonin < 0.05 (0-0.5) ng/ml SARS-CoV-2, RNA, NAAT (NEGATIVE) 09/16/21 Range/Units 17:00 WBC (4.8-10.8) K/uL RBC (4.7-6.1) M/uL Hgb (14.0-18.0) g/dL Hct (42-52) % MCV (80-100) fL MCH (25-34) pg MCHC (32-36) g/dL RDW Std Deviation (36.4-46.3) fL RDW Coeff of Nicky (11.5-14.5) % Plt Count (130-400) K/uL MPV (7.4-10.4) fL Immature Gran % (Auto) % Neut % (Auto) % Lymph % (Auto) % Stafford % (Auto) % Eos % (Auto) % Baso % (Auto) % Neut # (Auto) (1.4-6.5) K/uL Lymph # (Auto) (1.2-3.4) K/uL Stafford # (Auto) (0.11-0.59) K/uL Eos # (Auto) (0-0.5) K/uL Baso # (Auto) (0-0.2) K/uL Immature Gran # (Auto) (0.00-0.02) K/uL PT (9.0-12.0) Seconds INR (0.9-1.1) APTT (21.0-31.0) Seconds PTT Ratio Sodium (136-145) mmol/L Potassium (3.5-5.1) mmol/L Chloride (98-107) mmol/L Carbon Dioxide (21-32) mmol/L Anion Gap (3-11) BUN (6-23) mg/dl Creatinine (0.6-1.4) mg/dl Est Cr Clr Drug Dosing ml/min Est GFR ( Amer) ml/min Est GFR (Non-Af Amer) ml/min BUN/Creatinine Ratio (10-20) Glucose (70-99(Fasting)) mg/dl Lactate (0.4-2.0) mmol/L Calcium (8.5-10.1) mg/dl Phosphorus (2.5-4.9) mg/dl Magnesium (1.7-2.4) mg/dl Total Bilirubin (0.2-1.0) mg/dl AST (13-39) U/L ALT (7-52) U/L Alkaline Phosphatase (34-104) U/L Troponin I (0-0.04) ng/ml B-Natriuretic Peptide (0-100) pg/ml Total Protein (6.0-8.3) gm/dl Albumin (3.4-5.0) gm/dl Globulin (2.5-4.0) gm/dl Albumin/Globulin Ratio (0.9-2) Procalcitonin (0-0.5) ng/ml SARS-CoV-2, RNA, NAAT NEGATIVE (NEGATIVE) Administered Medications Baclofen (Baclofen 10 Mg Tab) 5 mg PO HS [facility] Stop: 10/16/21 20:59 Last Admin: 09/16/21 22:30 Dose: 5 mg Documented by: [id number] Finasteride (Finasteride 5 Mg Tab) 5 mg PO QAM LM Stop: 10/16/21 19:29 Last Admin: 09/16/21 22:30 Dose: 5 mg Documented by: [id number] Sodium Chloride (Nss 1000ml) 1,000 mls @ 80 mls/hr IV .[id number] [facility] Stop: 09/17/21 07:44 Last Admin: 09/16/21 22:02 Dose: 80 mls/hr Documented by: [id number] Piperacillin Sod/Tazobactam (Sod 3.375 gm/ Dextrose) 115 mls @ 28.75 mls/hr IV Q8H LM; Protocol Stop: 09/18/21 21:59 Last Admin: 09/16/21 22:02 Dose: 28.8 mls/hr Documented by: [id number] Insulin Aspart (Insulin Aspart Per Unit) 0 units SC ACHS LM Stop: 10/16/21 20:59 Last Admin: 09/16/21 21:59 Dose: Not Given Documented by: [id number] Cosigned by: [id number] Warfarin Sodium (Warfarin Sod 3 Mg Tab) 3 mg PO [id number] LM Stop: 10/16/21 19:59 Last Admin: 09/16/21 22:30 Dose: 3 mg Documented by: [id number] Discontinued Medications Albuterol (Albut/Ipratrop 3mg/0.5mg Neb 3 Ml Vial) 3 ml NEB NOW STA; Protocol Stop: 09/16/21 18:03 Last Admin: 09/16/21 18:46 Dose: 3 ml Documented by: [id number] Piperacillin Sod/Tazobactam Sod (Zosyn) 4.5 gm in 120 mls @ 240 mls/hr IV NOW ONE Stop: 09/16/21 16:41 Last Infusion: 09/16/21 17:28 Dose: 0 mls/hr Documented by: [id number] Admin: 09/16/21 16:30 Dose: 240 mls/hr Documented by: [id number] Acetaminophen (Ofirmev) 1,000 mg in 100 mls @ 400 mls/hr IV NOW STA Stop: 09/16/21 18:15 Last Infusion: 09/16/21 19:27 Dose: 0 mls/hr Documented by: [id number] Admin: 09/16/21 18:46 Dose: 400 mls/hr Documented by: [id number] Sodium Chloride (Nss) 500 mls @ 999 mls/hr IV .Q31M ONE Stop: 09/16/21 18:31 Last Infusion: 09/16/21 20:52 Dose: 0 mls/hr Documented by: [id number] Admin: 09/16/21 18:46 Dose: 999 mls/hr Documented by: [id number] Imaging Data Radiologist's Impression: Chest X-Ray 09/16/21 16:11 XR chest 1V portable CLINICAL HISTORY: Sepsis. COMPARISON STUDY: Chest radiograph March 13, 2019. FINDINGS: Lung volumes are mildly diminished, unchanged. There is an equivocal 7 mm right upper lobe nodule. There is no pneumothorax or pleural effusion. Cardiac size is normal. Mediastinal contours are normal. There is no evidence for pulmonary edema. IMPRESSION: Equivocal 7 mm right upper lobe nodule. This is likely artifactual however a pulmonary nodule or minimal airspace disease could appear similar. Follow-up PA and lateral chest radiographs are recommended. ACT 112: Negative or not required by law. Electronically signed by: Terrance Paredes M.D. 09/16/2021 4:41 PM Discharge Plan Visit Data Chief Complaint: Congestion Stated Complaint: CONGESTION Discharge Problem: SIRS (systemic inflammatory response syndrome), Aspiration into respiratory tract, Acute dyspnea Patient Disposition: Admitted As Inpatient Discharge Instructions Interventions: ED Discharge Assessment Last Done: 09/16/21 21:23 Discharge Problem: Aspiration into respiratory tract Qualifiers: Encounter type: initial encounter Qualified Code(s): T17.908A - Unspecified foreign body in respiratory tract, part unspecified causing other injury, initial encounter
[2021-09-16 16:22] LABS: Basophils # (auto) 0.02 K/uL (0-0.2); Basophils % (auto) 0.2 %; Eosinophils # (auto) 0.09 K/uL (0-0.5); Eosinophils % (auto) 0.9 %; Hematocrit (blood only) 45.4 % (42-52); Immature Granulocytes # (auto) 0.02 K/uL (0.00-0.02); Immature Granulocytes % (auto) 0.2 %; Lymphocytes # (auto) 2.19 K/uL (1.2-3.4); Lymphocytes % (auto) 23.1 %; Mean Corpuscular Hemoglobin 31.8 pg (25-34); Mean Corpuscular Volume 96.4 fL (80-100); Mean Platelet Volume 10.3 fL (7.4-10.4); Monocytes # (auto) 1.21 K/uL (0.11-0.59); Monocytes % (auto) 12.8 %; Neutrophils # (auto) 5.96 K/uL (1.4-6.5); Neutrophils % (auto) 62.8 %; Platelet Count 154 K/uL (130-400); RDW Coefficient of Variation 13.2 % (11.5-14.5); Red Blood Count 4.71 M/uL (4.7-6.1); White Blood Count 9.49 K/uL (4.8-10.8)
[2021-09-16 16:33] LABS: INR 1.8 (0.9-1.1); Partial Thromboplastin Ratio 1.5; Partial Thromboplastin Time 40.4 Seconds (21.0-31.0); Prothrombin Time 17.5 Seconds (9.0-12.0)
--- NOTE | 2021-09-16 16:42 | XRay Report ---
XR chest 1V portable CLINICAL HISTORY: Sepsis. COMPARISON STUDY: Chest radiograph March 13, 2019. FINDINGS: Lung volumes are mildly diminished, unchanged. There is an equivocal 7 mm right upper lobe nodule. There is no pneumothorax or pleural effusion. Cardiac size is normal. Mediastinal contours ar e normal. There is no evidence for pulmonary edema. IMPRESSION: Equivocal 7 mm right upper lobe nodule. This is likely artifactual however a pulmonary no dule or minimal airspace disease could appear similar. Follow-up PA and lateral chest radiographs are recommended. ACT 112: Negative or not required by law. Electronically signed by: Terrance Paredes M.D. 09/16/2021 4:41 PM
[2021-09-16 16:46] LABS: Alanine Aminotransferase 10 U/L (7-52); Albumin Globulin Ratio 0.9 (0.9-2); Albumin Level 3.5 gm/dl (3.4-5.0); Alkaline Phosphatase 78 U/L (34-104); Anion Gap 8 (3-11); Aspartate Aminotransferase 19 U/L (13-39); BUN Creatinine Ratio 13.7 (10-20); Bilirubin,Total 0.6 mg/dl (0.2-1.0); Blood Urea Nitrogen 16 mg/dl (6-23); Calcium 8.9 mg/dl (8.5-10.1); Carbon Dioxide 27 mmol/L (21-32); Chloride 104 mmol/L (98-107); Creatinine Clr Calc Pharmacy 39.1 ml/min; Est GFR (African American) 64.6 ml/min; Est GFR (Non-African American) 55.7 ml/min; Globulin 3.7 gm/dl (2.5-4.0); Glucose 138 mg/dl (70-99(Fasting)); Magnesium 1.9 mg/dl (1.7-2.4); Phosphorus 3.1 mg/dl (2.5-4.9); Sodium 139 mmol/L (136-145); Total Protein 7.2 gm/dl (6.0-8.3)
[2021-09-16 17:07] LABS: Troponin I < 0.03 ng/ml (0-0.04)
[2021-09-16] MEDS ORDERED: SODIUM CHLORIDE 0.9% 500 ML IV ONE (18:01)
[2021-09-16] MEDS ORDERED: ACETAMINOPHEN 1,000 MG/100 ML VIAL IV STA (18:01)
[2021-09-16] MEDS ORDERED: ALBUT/IPRATROP 3MG/0.5MG NEB 3 ML VIAL NEB STA (18:02)
[2021-09-16] MEDS ORDERED: ONDANSETRON INJ 2 MG/ML 2 ML VIAL IV PRN (19:10)
[2021-09-16] MEDS ORDERED: POLYETHYLENE (MIRALAX) 17 GM PACK PO PRN (19:10)
[2021-09-16] MEDS ORDERED: ACETAMINOPHEN 325 MG TAB PO PRN (19:10)
[2021-09-16] MEDS ORDERED: GLUCOSE 40% GEL 15 GM TUBE PO PRN (19:15)
[2021-09-16] MEDS ORDERED: GLUCAGON FOR INJ 1 MG VIAL SQ PRN (19:15)
[2021-09-16] MEDS ORDERED: CARBOHYDRATES FOR HYPOGLYCEMIA PO PRN (19:15)
[2021-09-16] MEDS ORDERED: SODIUM CHLORIDE 0.9% 1000ML 1,000 ML IV SCH (19:15)
[2021-09-16] MEDS ORDERED: GLUCOSE 10 TABS/TUBE PO PRN (19:15)
[2021-09-16] MEDS ORDERED: DEXTROSE 50% 50 ML SYRINGE IV PRN (19:15)
--- NOTE | 2021-09-16 19:25 | History & Physical Report ---
Date of Service September 16, 2021 Assessment & Plan (1) Fever: (2) Cough: Plan: Patient is 86-year-old male with PMH paroxysmal atrial fibrillation, chronic systolic CHF, history of endocarditis, history bioprosthetic mitral valve replacement, CKD III, DM II, CVA, ambulatory dysfunction presented to ER with complaint of nonproductive cough x3 days. No reported fever recorded at [facility]. Denies any known choking. History 2 COVID-19 vaccinations and booster in . In ER T: 37.6C, 92% on room air. No leukocytosis. Lactate and procalcitonin WNL. BNP: 84. Negative COVID-19 NAAT. CXR: Equivocal 7mm upper lobe nodule, likely artifactual however a pulmonary nodule or minimal airspace disease could appear similar. -In ER was given 500ml NSS, Zosyn, duoneb, IV Tylenol -No micki signs of pneumonia, does not appear volume overloaded. Possible bronchitis -Blood cultures pending -UA pending -Continue Zosyn -Obtain PA/Lateral CXR -Aspiration precautions -Gentle IVF -CBC, BMP in am (3) Sacral pressure ulcer: Plan: -Wound nurse consult (4) Paroxysmal atrial fibrillation: Plan: On Coumadin INR: 1.8 -Continue Coumadin, metoprolol succinate -INR in am (5) Chronic systolic heart failure due to valvular disease: Plan: EF: 45-49% on echo in 2019 -Currently appears on dry side -Hold Lasix currently and reassess tomorrow (6) History of stroke: Plan: -Continue aspirin, atorvastatin (7) DM type 2 (diabetes mellitus, type 2): Plan: Diet controlled. A1c: 7.0 in 09/08/21 -Monitor BSG -Novolog sliding scale as needed (8) CKD (chronic kidney disease), stage III: Plan: Cr: 1.17. Baseline Cr: 1.1-1.2 -Monitor renal functions, avoid nephrotoxic agents when possible (9) Ambulatory dysfunction: Plan: Uses wheelchair and needs two person assist at baseline (10) History of mitral valve replacement with bioprosthetic valve: Plan: DVT Prophylaxis -On Coumadin DNR/DNI as per discussion with patient and patient's daughter Follows with Dr Gramajo for routine care Pt was seen and care coordinated with Dr Burr. See addendum Admission and Anticipated Discharge Date Admission Date: September 16, 2021 History of Present Illness Chief Complaint: Cough Primary Care Provider: [facility] Patient is 86-year-old male with PMH paroxysmal atrial fibrillation, chronic s ystolic CHF, history of endocarditis, history bioprosthetic mitral valve replacement, CKD III, DM II, CVA, ambulatory dysfunction presented to ER with complaint of cough x3 days. Daughter helps provide history. Reports patient lives at [facility]. Reports past 3 days has had wet sounding cough. Cough is nonproductive. Patient had reported felt SOB yesterday but today denies SOB. He states "feel lousy". No fever recorded at [facility]. Daughter states patient was complaining of chest tightness with coughing today. Reports patient with poor oral intake. Denies any known edema. Reports patient had to COVID-19 vaccinations as well as booster, last being in June 2021. Reports that she is aware of people being tested [facility] however been negative for COVID-19. Denies any known choking. Reports patient with ambulatory dysfunction at baseline and has Parkinsonian like features. Is wheelchair bound and two person assist. Denies any known falls. Patient with known pressure wound to sacrum that has been treated with Calmoseptine and recently Silvadene ointment without much improvement. Patient with urinary and bowel incontinence at baseline. Currently patient denies any CP or SOB. Denies diaphoresis, N/V/D/C, DEGROOT, dizziness, syncope, vision changes, neck pain, palpitations, hemoptysis, sore throat, choking, otalgia, rhinorrhea, abdominal pain, parest hesias, increased extremity weakness, extremity edema, rashes, hematuria, dysuria. In ER T: 37.6C, 92% on room air. No leukocytosis. Lactate and procalcitonin WNL. BNP: 84. Negative COVID-19 NAAT. CXR: Equivocal 7mm upper lobe nodule, likely artifactual however a pulmonary nodule or minimal airspace disease could appear similar. In ER was given 500ml NSS, Zosyn, duoneb, IV Tylenol. Allergies Allergy/AdvReac Type Severity Reaction Status Date / Time No Known Allergies Allergy Verified 09/16/21 16:29 Home Medications Medication Instructions Recorded Confirmed Type finasteride 5 mg tablet 5 mg PO QAM 03/01/19 09/16/21 History furosemide 20 mg tablet (Lasix) 20 mg PO QA 03/01/19 09/16/21 History warfarin 3 mg tablet (Jantoven) 3 mg PO 3XWK 03/13/19 09/16/21 History acetaminophen 325 mg tablet 650 mg PO HS MDD 3 GRAMS/24 HOURS 09/16/21 09/16/21 History (Tylenol) aspirin 81 mg chewable tablet 81 mg PO QA 09/16/21 09/16/21 History atorvastatin 20 mg tablet 20 mg PO QA 09/16/21 09/16/21 History baclofen 10 mg tablet 5 mg PO HS 09/16/21 09/16/21 History docusate sodium 100 mg capsule 200 mg PO QA 09/16/21 09/16/21 History esomeprazole magnesium 20 mg 20 mg PO DAILYBB 09/16/21 09/16/21 History capsule,delayed release loratadine 10 mg tablet 10 mg PO [facility] 09/16/21 09/16/21 History metoprolol succinate 25 mg 37.5 mg PO [facility] 09/16/21 09/16/21 History tablet,extended release 24 hr mometasone 50 mcg/actuation nasal 2 spray INTRANASAL QA 09/16/21 09/16/21 History spray multivitamin-iron 9 mg-folic acid 1 tab PO QA 09/16/21 09/16/21 History 400 mcg-calcium and minerals tablet (Therems-M) warfarin 1 mg tablet 1.5 mg PO 4XWK 09/16/21 09/16/21 History Past Med/Surg History Medical History Ambulatory dysfunction Chronic systolic heart failure due to valvular disease CKD (chronic kidney disease), stage III DM type 2 (diabetes mellitus, type 2) Hip fracture, right S/P repair History of bacterial endocarditis History of stroke 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 Paroxysmal atrial fibrillation Right hand fracture S/P repair Surgical History H/O right knee surgery History of mitral valve replacement with bioprosthetic valve Due to infective endocarditis Family History Father Heart disease Mother Stroke Social History Smoking Status: Unknown if ever smoked Hx Alcohol Use: No Hx Substance Use: No Preferred Language: Romanian Communication Ability: Effective Beliefs That Will Affect Care: None marital status: Current Living Situation: Spouse Current Living Situation Comment: lives with dtr and current occupational status: retired Feels Safe at Home: Yes Assistive Devices: None Review of Systems Review of Systems: All systems reviewed & are unremarkable except as noted in HPI & below Physical Exam Physical Exam: General: no acute distress, chronic ill appearing, thin elderly male Head: normocephalic, atraumatic Eyes: PERRL, EOM's intact, conjunctiva non-injected, anicteric ENT: hard of hearing, normal inspection external ears, nose, mucous membranes dry, +poor fitting denture plates Neck: supple, trachea midline Lungs: diminished breath sounds throughout with no wheezing/rhonchi or rales appreciated, no respiratory distress CV: RRR, no pretibial edema Abd: normal BS, soft, non-tender Ext: no cyanosis, no calf tenderness Neuro: Alert, oriented to person, says year is 2020, not oriented to place. diffuse weakness, right arm and leg greater than left (chronic) Skin: warm, dry, sacrum with stage one and stage two pressure ulcers without dis charge Results & Data Results & Data ([facility] Vital Signs (Past 12 Hours) Vital Signs Temp Pulse Resp BP BP Pulse Ox 09/16/21 18:00 90 09/16/21 17:03 90 18 131/64 91 09/16/21 16:11 37.6 C H 91 H 13 131/77 92 Laboratory Results Short CBC 09/16/21 Range/Units 16:07 WBC 9.49 (4.8-10.8) K/uL Hgb 15.0 (14.0-18.0) g/dL Hct 45.4 (42-52) % Plt Count 154 (130-400) K/uL BMP 09/16/21 16:07 Sodium 139 Potassium 4.0 Chloride 104 Carbon Dioxide 27 BUN 16 Creatinine 1.17 Glucose 138 H Calcium 8.9 Cardiac Enzymes 09/16/21 Range/Units 16:07 Troponin I < 0.03 (0-0.04) ng/ml Liver Function 09/16/21 Range/Units 16:07 Total Bilirubin 0.6 (0.2-1.0) mg/dl AST 19 (13-39) U/L ALT 10 (7-52) U/L Alkaline Phosphatase 78 (34-104) U/L Albumin 3.5 (3.4-5.0) gm/dl Diagnostic Findings Chest X-Ray 09/16/21 16:11 XR chest 1V portable CLINICAL HISTORY: Sepsis. COMPARISON STUDY: Chest radiograph March 13, 2019. FINDINGS: Lung volumes are mildly diminished, unchanged. There is an equivocal 7 mm right upper lobe nodule. There is no pneumothorax or pleural effusion. Cardiac size is normal. Mediastinal contours are normal. There is no evidence for pulmonary edema. IMPRESSION: Equivocal 7 mm right upper lobe nodule. This is likely artifactual however a pulmonary nodule or minimal airspace disease could appear similar. Follow-up PA and lateral chest radiographs are recommended. ACT 112: Negative or not required by law. Electronically signed by: Terrance Paredes M.D. 09/16/2021 4:41 PM Code Status & VTE Plan VTE Prophylaxis Plan VTE Prophylaxis will be ordered: Yes Supervising Physician Co-Signing Physician Notes Attending addendum: The patient was seen and examined in emergency room He is an 86-year-old male with significant past medical history as mentioned in H&P and almost bedbound was brought in with history of cough and fever for the last few days He denies any significant symptoms except cough but denies any shortness of breath or any chest pain Complains to a feverish feeling denies any abdominal discomfort, nausea or vomiting On examination Lying in bed comfortably Hemodynamically stable with temperature of 37.6 Chest-decreased breath sounds due to poor effort with minimal bibasilar crackles Heart-S1-S2 with a 2/6 ESM over precordium Abdomen-benign Extremities-negative for any edema LIAISON OFFICER-alert and awake. Has tremors with movement of the upper extremities. Noted to be stiff with movement of the joints. Generally weak and lethargic His admission labs, EKG and imaging studies reviewed Noted initial right upper lobe nodule was ruled out with subsequent PA and lateral view of the chest x-ray Ongoing cough may have bronchitis/possible pneumonia and Zosyn has been started Blood cultures were taken Agree with assessment and plan as outlined above by HARDIK Rosario DR
[2021-09-16] MEDS ORDERED: WARFARIN SOD 3 MG TAB PO SCH (20:00)
--- NOTE | 2021-09-16 20:00 | XRay Report ---
XR chest 2V PA/lateral CLINICAL HISTORY: Sepsis. Abnormal portable chest radiograph. COMPARISON STUDY: Portable chest radiographs March 13, 2019 and September 16, 2021 at 4:11 PM. FINDINGS: Lung volumes are mildly diminished. This is unchanged. There is no pneumothorax or pleural effusion. No consolidation is identified. Linear left basilar opacity reflects atelectasis. Old L1 co mpression fracture is noted on lateral projection. This is unchanged since abdominal CT of March 01. There is no evidence for pulmonary edema. The possible right upper lobe nodule shown on prior po rtable chest radiograph is not evident on this exam. This was artifactual. IMPRESSION: 1. No acute cardiopulmonary findings. 2. Possible right upper lobe nodule on portable chest radiograph not evident on this exam. This was a rtifactual. ACT 112: Negative or not required by law. Electronically signed by: Terrance Paredes M.D. 09/16/2021 7:59 PM
[2021-09-16] MEDS ORDERED: BACLOFEN 10 MG TAB PO SCH (21:00)
[2021-09-16] MEDS: INSULIN ASPART PER UNIT SC SCH (21:59)
[2021-09-16] MEDS: PIPERACILLIN/TAZOBACTAM 3.375 GM in DEXTROSE 5% 100 ML IV SCH (22:02)
[2021-09-16] MEDS: FINASTERIDE 5 MG TAB PO SCH (22:30)
[2021-09-17] MEDS: PIPERACILLIN/TAZOBACTAM 3.375 GM in DEXTROSE 5% 100 ML IV SCH (05:46)
[2021-09-17] MEDS ORDERED: PANTOprazole 40 MG TAB PO SCH (06:30)
[2021-09-17 06:32] LABS: Hematocrit (blood only) 43.5 % (42-52); Hemoglobin 14.5 g/dL (14.0-18.0); Mean Corpuscular Hemoglobin 32.2 pg (25-34); Mean Corpuscular Hgb Conc 33.3 g/dL (32-36); Mean Corpuscular Volume 96.7 fL (80-100); Mean Platelet Volume 10.1 fL (7.4-10.4); Platelet Count 134 K/uL (130-400); RDW Coefficient of Variation 13.2 % (11.5-14.5); RDW Standard Deviation 47.5 fL (36.4-46.3); White Blood Count 7.91 K/uL (4.8-10.8)
[2021-09-17 06:36] LABS: Prothrombin Time 19.3 Seconds (9.0-12.0)
[2021-09-17 06:54] LABS: BUN Creatinine Ratio 13.7 (10-20); Calcium 8.5 mg/dl (8.5-10.1); Creatinine Clr Calc Pharmacy 35.6 ml/min; Est GFR (African American) 56.3 ml/min; Est GFR (Non-African American) 48.6 ml/min; Potassium 3.8 mmol/L (3.5-5.1)
[2021-09-17] MEDS: INSULIN ASPART PER UNIT SC SCH ×2 (08:30→12:00)
[2021-09-17] MEDS: FINASTERIDE 5 MG TAB PO SCH (08:41)
[2021-09-17] MEDS ORDERED: ASPIRIN 81 MG ECTAB PO SCH (09:00)
[2021-09-17] MEDS ORDERED: METOPROLOL SUCC 25MG EXT REL TAB PO SCH (09:00)
[2021-09-17] MEDS ORDERED: MULTIVITAMIN TAB PO SCH (09:00)
[2021-09-17] MEDS ORDERED: DOCUSATE SODIUM 100 MG CAP PO SCH (09:00)
[2021-09-17] MEDS ORDERED: LORATADINE 10 MG TAB PO SCH (09:00)
[2021-09-17] MEDS ORDERED: ATORVASTATIN 20 MG TAB PO SCH (09:00)
[2021-09-17 11:10] LABS: Appearance Urine Clear (Clear); Bacteria Urine Automated Negative (Negative); Bilirubin Urine Negative (Negative); Blood Urine Negative (Negative); Color Urine Dark Yellow; Epithelial Cell Urine Auto >30 /lpf (0-5); Glucose Urine UA Negative (Negative); Ketones Urine Trace (Negative); Leukocyte Esterase Urine Negative (Negative); Nitrite Urine Negative (Negative); Protein Urine Trace (Negative); Specific Gravity Urine 1.028 (1.000-1.030); Urobilinogen Urine Negative (Negative)
[2021-09-17 11:23] LABS: Uric Acid Crystals Urine Present (None Prsent)
[2021-09-17] MEDS ORDERED: DOXYCYCLINE HYCLATE 100 MG CAP PO SCH (12:00)
--- NOTE | 2021-09-17 12:16 | Electrocardiogram Report ---
Test Reason : Blood Pressure : / mmHG Vent. Rate : 091 BPM Atrial Rate : 091 BPM P-R Int : 134 ms QRS Dur : 088 ms QT Int : 366 ms P-R-T Axes : 041 025 073 degrees QTc Int : 450 ms Poor data quality, interpretation may be adversely affected Normal sinus rhythm Normal ECG When compared with ECG of 13-MAR-2019 09:59, No significant change was found Confirmed by Magnus Gabriel ([id number]) on 09/17/2021 12:16:34 PM [facility] Confirmed By:Bradley Gabriel
[2021-09-17] MEDS ORDERED: WARFARIN SOD 0.5 MG TAB PO SCH (16:00)
--- NOTE | 2021-09-17 17:33 | Discharge Summary ---
Date of Service September 17, 2021 Admission HPI Per Admitting Provider Patient is 86-year-old male with PMH paroxysmal atrial fibrillation, chronic systolic CHF, history of endocarditis, history bioprosthetic mitral valve replacement, CKD III, DM II, CVA, ambulatory dysfunction presented to ER with complaint of cough x3 days. Daughter helps provide history. Reports patient lives at [facility]. Reports past 3 days has had wet sounding cough. Cough is nonproductive. Patient had reported felt SOB yesterday but today denies SOB. He states "feel lousy". No fever recorded at [facility]. Daughter states patient was complaining of chest tightness with coughing today. Reports patient with poor oral intake. Denies any known edema. Reports patient had to COVID-19 vaccinations as well as booster, last being in June 2021. Reports that she [facility] been negative for COVID-19. Denies any known choking. Reports patient with ambulatory dysfunction at baseline and has Parkinsonian like features. Is wheelchair bound and two person assist. Denies any known falls. Patient with known pressure wound to sacrum that has been treated with Calmoseptine and recently Silvadene ointment without much improvement. Patient with urinary and bowel incontinence at baseline. Currently patient denies any CP or SOB. Denies diaphoresis, N/V/D/C, DEGROOT, dizziness, syncope, vision changes, neck pain, palpitations, hemoptysis, sore throat, choking, otalgia, rhinorrhea, abdominal pain, paresthesias, increased extremity weakness, extremity edema, rashes, hematuria, dysuria. In ER T: 37.6C, 92% on room air. No leukocytosis. Lactate and procalcitonin WNL. BNP: 84. Negative COVID-19 NAAT. CXR: Equivocal 7mm upper lobe nodule, likely artifactual however a pulmonary nodule or minimal airspace disease could appear similar. In ER was given 500ml NSS, Zosyn, duoneb, IV Tylenol. Admission Exam Per Admitting Provider General: no acute distress, chronic ill appearing, thin elderly male Head: normocephalic, atraumatic Eyes: PERRL, EOM's intact, conjunctiva non-injected, anicteric ENT: hard of hearing, normal inspection external ears, nose, mucous membranes dry, +poor fitting denture plates Neck: supple, trachea midline Lungs: diminished breath sounds throughout with no wheezing/rhonchi or rales appreciated, no respiratory distress CV: RRR, no pretibial edema Abd: normal BS, soft, non-tender Ext: no cyanosis, no calf tenderness Neuro: Alert, oriented to person, says year is 2020, not oriented to place. diffuse weakness, right arm and leg greater than left (chronic) Skin: warm, dry, sacrum with stage one and stage two pressure ulcers without discharge Principal Diagnosis Acute bronchitis Discharge Exam GENERAL: Alert and oriented x3. NAD, on RA. HEENT: No pallor, no icterus. Pupils equal, round and reactive to light. Oral mucosa moist. NECK: No JVD, no neck masses. HEART: S1 and S2 heard. Regular rate and rhythm. No murmur, no gallop. RESPIRATORY SYSTEM: Normal AP diameter. No accessory muscle use. No wheezing, no crackles. ABDOMEN: Soft, bowel sounds present, nontender, no distention. CENTRAL NERVOUS SYSTEM: No facial droop. Speech is clear. Obeys simple commands. Moves extremities. EXTREMITIES: No edema, no erythema seen. Generalized weakness right-sided greater than left which is chronic. Discharge Data Allergies Allergy/AdvReac Type Severity Reaction Status Date / Time No Known Allergies Allergy Verified 09/16/21 16:29 Consultations 09/16/21 18:15 ED Decision to Admit Stat Hospital Course (1) Cough: 86-year-old gentleman with PMH of PAF, chronic systolic CHF, history of endocarditis, bioprosthetic mitral valve replacement, CKD stage III, DM 2, CVA and ambulatory dysfunction presented to the ED 09/16 with complaint of for 3 days. Blood work and chest x-ray were negative for any pneumonia or signs of infection. Patient also has sacral decubitus ulcerdeveloping. Patient's daughter was called and updated over the phone about the current status of the patient and plan of management. [facility]. Following instructions were communicated at the point of discharge to patient's daughter over the phone: Follow-up with your primary care physician within a week time. Maintain follow-up with wound care. Since you are started on an antibiotic for 7 days, closely monitoring of PT/INR is required, due to PT/INR in 2 to 3 days upon discharge, follow-up with Coumadin clinic as an outpatient. Take medications as prescribed. Total Time Total Time Spent Total Time Spent (In Minutes): 38 Discharge Plan Discharge Items Patient Disposition: [facility] Reason For Visit: FEVER Discharge Diagnosis: Acute bronchitis Activity: Resume your previous activity Non-emergency contact: Primary Care Provider Call non-emergency contact if: you have any medication questions, your symptoms worsen and your rectal temperature is above 100.4 Follow-up/Referrals: [facility] [Other] - 10/06/21 1:00 pm ([address], [address] [place] [address] ) Jasmyne Gramajo MD [Hospitalist] - (Date & Time 09/22/2021 11:00 AM Provider Jasmyne Gramajo MD Department General Internal Medicine [facility] ) [facility] [Primary [facility] - Diet: Carb Consistent or DM2 and Heart Healthy Addtl Attending Provider Instructions: Follow-up with your primary care physician within a week time. Maintain follow-up with wound care. Since you are started on an antibiotic for 7 days, closely monitoring of PT/INR is required, due to PT/INR in 2 to 3 days upon discharge, follow-up with Coumadin clinic as an outpatient. Take medications as prescribed. Pending Studies at Discharge: Yes (admitting blood culture) Stand-Alone Forms: My [facility], Smoking Cessation Skilled Items Patient informed of condition?: Yes DNR: Yes Discharge Level of Care: Other Communicable Disease: No Discharge Prognosis: Stable Lines: None Urinary Catheter: No (if he has got mary in here, can dc mary prior to DC. ) Medications and DC Order Prescriptions: New doxycycline hyclate 100 mg Capsule 100 mg PO BID 7 Days Qty: 14 RF: 0 Continued furosemide [Lasix] 20 mg Tablet 20 mg PO QAM RF: 0 finasteride 5 mg Tablet 5 mg PO QAM RF: 0 warfarin [Jantoven] 3 mg tablet 3 mg PO 3XWK RF: 0 acetaminophen [Tylenol] 325 mg Tablet 650 mg PO HS MDD 3 GRAMS/24 HOURS RF: 0 atorvastatin 20 mg tablet 20 mg PO QAM RF: 0 baclofen 10 mg Tablet 5 mg PO HS RF: 0 docusate sodium 100 mg Capsule 200 mg PO QAM RF: 0 mometasone 50 mcg/actuation [place],Non-Aerosol 2 spray INTRANASAL QAM RF: 0 aspirin 81 mg Tablet,Chewable 81 mg PO QAM RF: 0 metoprolol succinate 25 mg Tablet Extended Release 24 Hr 37.5 mg PO QAM RF: 0 warfarin 1 mg Tablet 1.5 mg PO 4XWK RF: 0 loratadine 10 mg Tablet 10 mg PO QAM RF: 0 esomeprazole magnesium 20 mg Capsule,Delayed Release(Dr/Ec) 20 mg PO DAILYBB RF: 0 Therems-M 9 mg iron-400 mcg Tablet 1 tab PO QAM RF: 0 Discharge Orders: Discharge Order (Routine); Ordered 09/17/21 Ordered By: Wilfredo Ashley Admission Data Admit Date/Time: 09/16/21 18:30 Attending Provider: Wilfredo Ashley Admit Provider: Song Burr Primary Care Provider: JADIEL BURT Other Providers: Song Burr Other Interventions: Discharge Summary Assessment (RN) Last Done: 09/17/21 14:27
[2021-09-17] MEDS ORDERED: ACETAMINOPHEN 325 MG TAB PO SCH (21:00)
== END 2021-09-17 15:50 | disposition home or self-care (01) ==
LOC: EDINP 15:51 → ED 15:51 → SUATTDRO 18:30 → 2N 21:17